=== PATIENT | female | born 1950 | race Caucasian/White ===

== ENCOUNTER 2022-07-25 15:34 | Emergency (ER) | payer OTHER, SELFPAY ==
[2022-07-25 16:06] VITALS: BP 121/73; PULSE 83; RESP 16; TEMP 36.1; O2SAT 97; BMI 25.0
== END 2022-07-25 19:50 | disposition left against medical advice (07) ==
PROVIDERS: PCP Family Medicine
DX: Z53.21 Procedure and treatment not carried out due to patient leaving prior to being seen by health care provider (principal)
CPT/HCPCS: 99281

== ENCOUNTER 2022-08-15 14:04 | Outpatient (CLI) | payer OTHER, SELFPAY ==
[2022-08-15 17:27] LABS: Albumin* 4.2 g/dL (3.3-5.0)
[2022-08-15 17:28] LABS: Chloride* 106 mmol/L (96-114); Potassium* 4.3 mmol/L (3.6-5.1); Sodium* 138 mmol/L (135-149)
[2022-08-15 17:30] LABS: Aspartate Amino Transferase* 21 U/L (12-35); Bilirubin Total* 0.7 mg/dL (0.1-1.5); Carbon Dioxide* 27 mmol/L (20-32); Creatinine* 0.9 mg/dL (0.5-1.5); Estimated Glomerular Filt Rate 68 ml/min; Total Protein* 6.4 g/dL (6.0-8.3)
[2022-08-15 17:31] LABS: Alanine Aminotransferase* 16 U/L (4-35); Alkaline Phosphatase* 67 U/L (40-150); Blood Urea Nitrogen* 9 mg/dL (7-30); Calcium* 10.1 mg/dL (8.4-10.6); Glucose* 99 mg/dL (60-115)
== END 2022-08-15 14:05 | disposition home or self-care (01) ==
PROVIDERS: PCP Family Medicine; Visit Provider Family Medicine
DX: R53.83 Other fatigue (principal); R19.7 Diarrhea, unspecified
CPT/HCPCS: 80053; 84443

== ENCOUNTER 2022-10-11 14:43 | Outpatient (CLI) | payer OTHER, SELFPAY ==
--- NOTE | 2022-10-11 14:40 | CRLHL7_ITS ---
For Patients: As a result of the Century Cures Act, medical imaging exams and procedure reports are released immediately into your electronic medical record. You may view this report before your referring provider. If you have questions, please contact your health care provider. BILATERAL SCREENING MAMMOGRAM WITH COMPUTER-AIDED DETECTION AND TOMOSYNTHESIS TECHNIQUE: CC and MLO views were obtained. These mammographic images have been obtained using full-field digital technique. These mammographic images were interpreted with the benefit of computer-aided detection. Breast Tomosynthesis was used in this interpretation. COMPARISON FILM: 06/14/21, 05/04/20, 11/11/18. FINDINGS: The breasts are heterogeneously dense, which may obscure small masses IMPRESSION: There is no radiographic evidence for malignancy. ASSESSMENT: BI-RADS Category 2: Benign RECOMMENDATION: Routine screening mammogram in 1 year. A lay language report of this examination will be provided to the patient. Kendall Macias M.D. Diagnostic Radiologist [email or web address] NORY/Dictated by: Kendall Macias MD @ 10/12/2022 12:23:00 PM (Electronically Signed)
== END 2022-10-11 14:44 | disposition home or self-care (01) ==
PROVIDERS: PCP Family Medicine; Visit Provider Family Medicine
DX: Z12.31 Encounter for screening mammogram for malignant neoplasm of breast (principal); R92.2 Inconclusive mammogram
CPT/HCPCS: 77063; 77067

== ENCOUNTER 2023-01-14 19:01 | Outpatient (REF) | payer OTHER, SELFPAY ==
--- OUTSIDE RECORDS SUMMARY | 2023-01-14 19:04 | XMS_ITS | Continuity of Care Document ---
Author Name Unknown Organization [facility] Address [address] [facility] [place] [address] Phone Care Team Providers Care Insurance Verifier Name Role Phone Francois JANEY Ary Unavailable Unavailable Allergies, Adverse Reactions, Alerts Substance Reaction Status Criticality Tetracyclines Active No Information Sulfa (Sulfonamide Antibiotics) Active No Information Medications Medication Instructions Dosage Effective Dates (start - stop) Status Comments vitamin E 600 unit capsule take 2 tablet by oral route every day as needed - Active Aspirin Low Dose 81 mg tablet,delayed release take 1 tablet by oral route every day 81 MG - Active Cosopt 22.3 mg-6.8 mg/mL eye drops instill 1 drop by ophthalmic route 2 times every day into affected eye(s) 1.00 drop - Active spironolactone 50 mg tablet take 1 tablet by oral route every day 50 MG - Active Divigel 0.5 mg/0.5 gram (0.1 %) transdermal gel packet apply 1 packet by topical route every day to upper thigh - Active simvastatin 20 mg tablet take 1 tablet by oral route every day in the evening 20 MG - Active FML S.O.P. (unknown strength) apply 0.5 inch by ophthalmic route 2 times every day ribbon into the lower conjunctival sac(s) in the affected eye(s) Not Available - Active Byron 128 5 % eye drops - Active Byron 128 5 % eye ointment - Active brimonidine 0.2 % eye drops instill 1 drop by ophthalmic route every 8 hours into affected eye(s) 1.00 drop - Active latanoprost 0.005 % eye drops instill 1 drop by ophthalmic route every day into affected eye(s) in the evening 1.00 drop - Active Cymbalta 60 mg capsule,delayed release take 2 capsule by ORAL route every day 120 MG - No Longer Active Procedures Procedure Date OFFICE/OUTPATIENT VISIT, EST OFFICE/OUTPATIENT VISIT, EST OFFICE VISIT, EST TELEMEDICINE OFFICE/OUTPATIENT VISIT, EST OFFICE VISIT, EST TELEMEDICINE OFFICE/OUTPATIENT VISIT, EST OFFICE/OUTPATIENT VISIT, EST OFFICE VISIT, EST TELEMEDICINE No Charge For Visit Per Prov OFFICE/OUTPATIENT VISIT, EST OFFICE/OUTPATIENT VISIT, EST INJ TRIGGER POINT, 1/2 MUSCL Kenalog Triamcinolone acetonide inj Foll-up eval q3mo opiod tx OFFICE/OUTPATIENT VISIT, EST DAST 15-30 MIN OFFICE/OUTPATIENT VISIT, NEW Advance Directives Directive Yes / No Effective Date File Name No Information Encounters Encounter Description Practice Location Reason(s) For Visit Diagnoses Date Provider Providers Copied on Encounter [facility], [address] [place], [place], [id number] , [place] tel: [phone] [facility] [place] No Information 2 Francois Mcallister. [address] [facility] [address], [place], [id number] , [place]. tel:[phone] OFFICE/OUTPAT IENT VISIT, EST [facility], [address], [place], [id number] , [place] tel:[phone] [facility] [place] Fibromyalgia (chief complaint) Chronic pain syndromePain in left shoulderPain in right kneePain in left kneeMyalgia, other siteFibromyalgi a 2 Francois Mcallister. [address] [facility] [address], [place], [id number] , [place]. tel:[phone] Referring Provider: Rick Auguste, [address] [place], [address] . tel:[phone] OFFICE/OUTPAT IENT VISIT, [facility], [address] [place] [address] [place], [id number] , [place] tel: [phone] [facility] Fibromyalgia (chief complaint) Chronic pain syndromePain in left shoulderMyalgia , other siteFibromyalgi aPain in left kneePain in right knee January-0 2 Nyongesa Ary. [address] [facility] [address], [place], [id number] , [place]. tel: [phone] Referring Provider: Rick Auguste, [place], [address] . tel:[phone] OFFICE VISIT, [facility], [address] [place] [address] [place], [place], [id number] , [place] tel: [phone] [facility] Fibromyalgia (chief complaint) Chronic pain syndromeFibromy algiaMyalgia, other sitePain in left shoulder Aug- 1 Nyongesa Ary. [address] [facility] [address], [place], [id number] , [place]. tel: [phone] Referring Provider: Rick Auguste, [address] [facility] [place], [address] . tel:[phone] OFFICE/OUTPAT IENT VISIT, [facility], [address] [place] [address] [place], [id number] , [place] tel: [phone] [facility] Fibromyalgia (chief complaint) Chronic pain syndromeFibromy algiaMyalgia, other sitePain in left shoulder Larry-0 1 Nyongesa Ary. [address] [facility] [address], [place], [id number] , [place]. tel: [phone] Referring Provider: Rick Auguste, [place], [address] . tel:[phone] OFFICE VISIT, [facility], [address] [place], [id number] , [place] tel: [phone] [facility] [place] Fibromyalgia (chief complaint) Chronic pain syndromeFibromy algiaMyalgia, other sitePain in left shoulder 1 Nyongesa Ary. [address] [facility] [address], [place], [id number] , [place]. tel: [phone] Referring Provider: Rick Auguste, [address] [place], [address] . tel:[phone] OFFICE/OUTPAT IENT VISIT, [facility], [address] [place], [place] [address], [id number] , [place] tel: [phone] [facility] Fibromyalgia (chief complaint) Chronic pain syndromeFibromy algiaMyalgia, other sitePain in left shoulder 1 Nyongesa Ary. [address] [facility] [address], [place], [id number] , [place]. tel: [phone] Referring Provider: Rick Auguste, [place], [address] . tel:[phone] OFFICE/OUTPAT IENT VISIT, [facility], [address] [place], [place] [address], [id number] , [place] tel: [phone] [facility] Fibromyalgia (chief complaint) Chronic pain syndromeFibromy algiaMyalgia, other sitePain in left shoulder 0 Nyongesa Ary. [address] [facility] [address], [place], [id number] , [place]. tel: [phone] Referring Provider: Rick Auguste, [place], [address] . tel:[phone] OFFICE VISIT, [facility], [address] [place] [place], [id number] , [place] tel:[phone] [facility] [place] Fibromyalgia (chief complaint) Chronic pain syndromeFibromy algiaMyalgia, other sitePain in left shoulder Jul-0 5- 0 Will Rick. [address] [place], [id number] , [place]. tel: [phone] Referring Provider: Rick Auguste, [place], [address] . tel:[phone] [facility], [address] [place], [place] [address], [id number] , [place] tel: [phone] [facility] [place] No Information Jul-0 5 0 Nyongesa Ary. [address] [facility] [address], [place], [id number] , [place]. tel: [phone] Referring Provider: Rick Auguste, [place], [address] . tel:[phone] OFFICE/OUTPAT IENT VISIT, [facility], [address] [place], [id number] , [place] tel: [phone] [facility] Fibromyalgia (chief complaint) Chronic pain syndromeFibromy algiaMyalgia, other sitePain in left shoulder Oct-0 8-202 0 Nyongesa Ary. [address] [facility] [address], [place], [id number] , [place]. tel: [phone] Referring Provider: Rick Auguste, [address] [facility] [place], [address] . tel:[phone] OFFICE/OUTPAT IENT VISIT, [facility], [address] [place] [address] [place], [id number] , [place] tel: [phone] [facility] [place] Fibromyalgia (chief complaint) Chronic pain syndromeFibromy algiaMyalgia, other sitePain in left shoulderLong term (current) use of opiate analgesic Sep-0 2-202 0 Nyongesa Ary. [address] [facility] [address], [place], [id number] , [place]. tel:[phone] Referring Provider: Rick Auguste, [address] [place], [address] . tel:[phone] OFFICE/OUTPAT IENT VISIT, [facility], [address] [facility] [place], [id number] , [place] tel:[phone] [facility] Fibromyalgia (chief complaint) Chronic pain syndromeFibromy algiaMyalgia, other sitePain in left shoulder 0 Virginia Martínez. [address] [facility] [address], [place], [id number] , [place]. tel:[phone] Referring Provider: Rick Auguste, [address] [place], [address] . tel:[phone] OFFICE/OUTPAT IENT VISIT, [facility], [address] [place] [address] [address], [place], [id number] , [place] tel:[phone] [facility] Fibromyalgia (chief complaint) Chronic pain syndromeFibromy algiaEncounter for therapeutic drug level monitoringMyalg ia, other site 0 Francois Mcallister. [address] [facility] [address], [place], [id number] , [place]. tel:[phone] Referring Provider: Rick Auguste, [address] [place], [address] . tel:[phone] Family History Family Member Type Diagnosis Age At Onset No Information Payers Payer name Insurance type Covered alliance party ID Authorleonaa eryndarien(s) [employer] Medicare PPO Replacement [id number] Social History Type Description Quantity Date Captured Comments Sex Female Smoking Status No Information Chief Complaint And Reason For Visit No Information Reason For Referral Reason For Referral No Information Plan Of Treatment Date Type Action Status Goal OARS. Due on due Goal PROOFER BLACK AND WHITE Paperwork. Due on due Goal AST (SGOT). Due on due Goal Creatinine. Due on due Goal ALT (SGPT). Due on due Goal BUSINESS MANAGEMENT INTERN Scanned. Due on due Goal UDT. Due on due Goal Order Annual PT. Due on due Goal Update Social Hi story. Due on due Goal Unhealthy drug u se screening. Due on due Goal Review Allergy L ist. Due on due Goal Tobacco Use. Due on due Goal FIT-DNA. Due on due Goal Height. Due on d ue Goal Lipid panel. Due on due Goal CT-Colonography. Due on due Goal PHQ-9. Due on du e Goal Hepatitis C scre ening. Due on due Goal FIT. Due on due Goal Zoster vaccine ( 1st). Due on due Goal Weight. Due on d ue Goal Medication Recon ciliation. Due on due Goal Order Annual PT. Due on due Goal ALT (SGPT). Due on due Goal Creatinine. Due on due Goal BUSINESS MANAGEMENT INTERN Scanned. Due on due Goal AST (SGOT). Due on due Goal OARS. Due on due Goal UDT. Due on due Goal PROOFER BLACK AND WHITE Paperwork. Due on due Goal Weight. Due on d ue Goal Height. Due on d ue Goal FIT. Due on due Goal Medication Recon ciliation. Due on due Goal Review Allergy L ist. Due on due Goal Unhealthy drug u se screening. Due on due Goal FIT-DNA. Due on due Goal Zoster vaccine ( 1st). Due on due Goal CT-Colonography. Due on due Goal PHQ-9. Due on du e Goal Tobacco Use. Due on due Goal Update Social Hi story. Due on due Goal Hepatitis C scre ening. Due on due Goal Lipid panel. Due on due Goal Creatinine. Due on due Goal UDT. Due on due Goal OARS. Due on due Goal PROOFER BLACK AND WHITE Paperwork. Due on due Goal BUSINESS MANAGEMENT INTERN Scanned. Due on due Goal AST (SGOT). Due on due Goal ALT (SGPT). Due on due Goal Order Annual PT. Due on due Goal Height. Due on d ue Goal Medication Recon ciliation. Due on due Goal Tobacco Use. Due on due Goal Review Allergy L ist. Due on due Goal PHQ-9. Due on du e Goal Weight. Due on d ue Goal Update Social Hi story. Due on due Goal Creatinine. Due on due Goal UDT. Due on due Goal OARS. Due on due Goal PROOFER BLACK AND WHITE Paperwork. Due on due Goal BUSINESS MANAGEMENT INTERN Scanned. Due on due Goal AST (SGOT). Due on due Goal ALT (SGPT). Due on due Goal Order Annual PT. Due on due Goal Height. Due on d ue Goal Medication Recon ciliation. Due on due Goal Tobacco Use. Due on due Goal Review Allergy L ist. Due on due Goal PHQ-9. Due on du e Goal Weight. Due on d ue Goal Update Social Hi story. Due on due Goal Height. Due on d ue Goal Medication Recon ciliation. Due on due Goal Tobacco Use. Due on due Goal Review Allergy L ist. Due on due Goal PHQ-9. Due on du e Goal Weight. Due on d ue Goal Update Social Hi story. Due on due Goal Creatinine. Due on due Goal UDT. Due on due Goal OARS. Due on due Goal PROOFER BLACK AND WHITE Paperwork. Due on due Goal BUSINESS MANAGEMENT INTERN Scanned. Due on due Goal AST (SGOT). Due on due Goal ALT (SGPT). Due on due Goal Order Annual PT. Due on due Future Order: Radiology Order X- Ray Exam Of Knee Left (XKNEEL), Ordered on: Ordered Future Order: Radiology Order X- Ray Exam Of Knee Right (XKNEER), Body Site: Bilateral Knees , Ordered on: Ordered History Of Present Illness Encounter Date Complaint History Of Prese nt Illness Comments: Beena santa s a 71 y/o female who presents for follow up and medications refill in the setting of chronic fibromyalgia pain. She was last seen on 01/31/22. She is accompanied by her today who also contributes to her discussion of care. Pain has been fluctuating this month. Reports pain in the L calf which can lock up at times and extreme pain in the L hand. Patient states she will discontinue care with [facility] and continue care with [facility]. Notes she does not have any hard feelings against [facility] as the main reason why she wants to switch care is d/t being pt at [facility] Reports current medication regimen provides moderate pain relief and allows for increased functionality. Denies OIC or other side effects from current medication regimen. No other concerns today Fibromyalgia Severity level i s 4. Duration: chronic. Location of the pain is left hand and left calf. The client describes it as sharp, achy, burning and tingling. It occurs persistently. The problem is fluctuating. Symptom is aggravated by bending, walking upstairs, walking downstairs, running, sitting, standing, walking, prolonged positioning, housework and movement. Relieving factors include rest and Rx Meds. Pertinent negatives include diarrhea, fatigue, fever and incontinence (urinary). Comments: Beena santa s a 71 y/o female, here for follow up and medications refill in the setting of chronic fibromyalgia pain. She was last seen 08/2021.She reports the area below her R knee can sometimes lock up. She notes when she rides on her bike sometimes she falls and experiences dizziness. She notes that she feels tired all the time and can sleep 10-12hrs at a time. She reports she has not completed a Vitamin D, iron levels or thyroid labs in a while. Denies SOB. She details she does not feel like her lethargy is medication related as she has been on Cymbalta for over 1 year. She also reports L hand pain.She again notes she has intermittent memory issues; sometimes good, sometimes poor. Reports current medication regimen (Cymbalta 60mg #2 capsules a day) provides moderate pain relief and allows for increased functionality. Denies side effects from current medication regimen.No other concerns today Fibromyalgia Duration: chroni c. The client describes it as sharp and achy. It occurs persistently. The problem is stable. Symptom is aggravated by bending, walking upstairs, walking downstairs, running, sitting, standing, walking, housework, lifting and prolonged positioning. Relieving factors include heat and changing positions. Pertinent negatives include diarrhea, fatigue, fever and incontinence (urinary). Fibromyalgia Severity level i s 4. Duration: chronic. Location of the pain is bilateral shoulder, bilateral knee, BL feet and BL hands. The patient describes it as sharp and achy. It occurs persistently. The problem is worsening. Pertinent negatives include diarrhea, fatigue, fever and incontinence (urinary). Fibromyalgia (comments) Beena is a 71 y/o female, here via [employer] for virtual follow up and medications refill in the setting of chronic fibromyalgia pain. She reports her pain is worse this month as she has been out of her Cymbalta rx. She states her memory issues are intermittent; sometimes good, sometimes poor. Reports current medication regimen (Cymbalta) provides moderate pain relief and allows for increased functionality. Denies side effects from current medication regimen.No other concerns today Fibromyalgia (comments) Beena is here for a follow up and medications refill. Fibromyalgia pain persists this month, but medication does help to some extent. She feels her pain is somewhat well managed at this time. She reports persistent sharp pains in her hands. She reports intermittent water retention her feet, kidney function is normal. She reports some weight gain as her pain has increased, limiting her exercise ability. Her PCP ordered blood work, normal, recommended diet and exercise.She reports mild pressure headache brought on by the hot weather. Reports neck pain radiating into left shoulder, intermittent sharp pain in hands. She has history of carpel tunnel syndrome s/p surgery on both hands. Currently denies weakness or dropping objectsReports current medication regimen (Cymbalta) provides moderate pain relief and allows for increased functionality. Denies side effects from current medication regimen.No other concerns today. Fibromyalgia Duration: chroni c. Location of the pain is upper back, left shoulder, bilateral hand and left arm. The patient describes it as sharp, achy, burning and tingling. It occurs intermittently. The problem is stable. Symptom is aggravated by daily activities. Relieving factors include rest. Pertinent negatives include diarrhea, fatigue, fever and incontinence (urinary). Fibromyalgia (comments) Beena is meeting with us today via [employer] Virtual Visit for following up and medication refill. Widespread fibromyalgia pain persists this month, but medication does help to some extent. She feels he pain is moderately managed at this time. She has been completing daily at home exercises. The most bothersome pain is located across the upper back and into the left shoulder. She has noticed increased weakness/soreness in left arm, hx of rotator cuff issues. She also reports bilateral hand pain as well. Denies dropping any objects. The pain does improve after completing her neck exercises.Reports current medication regimen (Cymbalta) provides moderate pain relief and allows for increased functionality. Denies side effects from current medication regimen.No other concerns today. Fibromyalgia Severity level i s 3. Duration: chronic. Location of the pain is upper back, left shoulder, bilateral hand and left arm. The patient describes it as sharp, achy, burning and tingling. It occurs intermittently. The problem is stable. Symptom is aggravated by daily activities. Relieving factors include rest. Pertinent negatives include diarrhea, fatigue, fever and incontinence (urinary). Fibromyalgia (comments) Beena is here for a follow up and medications refill. Widespread fibromyalgia pain persists this month, but medication does help to some extent. She feels her pain is moderately managed at this time. Reports worse pain in left shoulder. When she rolls a certain way in bed, she experiences severe sharp pain.She is scheduled for her second dose of COVID-19 vaccine on 12/23/20.Reports possible parathyroidism due to high calcium levels and symptom of itching, PCP rx'ed hydroxyzine to take up to 3tab/day. But she was only given 30tab for the month. Requests refill until she is able to f/u.Reports current medication regimen (Cymbalta) provides moderate pain relief and allows for increased functionality. Denies side effects from current medication regimen. Reports no relief from diclofenac gel.No other concerns today. Fibromyalgia Duration: chroni c. Location of the pain is neck and left shoulder. The patient describes it as sharp and achy. It occurs persistently. The problem is stable. Symptom is aggravated by activity. Relieving factors include exercise. Pertinent negatives include diarrhea, fatigue, fever and incontinence (urinary). Fibromyalgia Duration: chroni c. Location of the pain is lower back, left shoulder, bilateral knee and bilateral legs. It occurs persistently. The problem is stable. Pertinent negatives include diarrhea, fatigue, fever and incontinence (urinary). Fibromyalgia (comments) Beena pre sents in clinic today for a follow up and medications refill. Widespread pain r/t fibromyalgia continues to be bothersome this month. BL shoulder blade pain and bilateral traps is most bothersome. Utilizing heat and massage for additional relief. Ongoing skin sensitivity.Received neurological evaluation, specialist determined that she is suffering from some cognitive delay and difficulty. Since she is unable to work and multitask, she is becoming more involved with scientologist.Reports current medication regimen provides 50+% pain relief and allows for increased functionality. Continuing to take Cymbalta 90mg/day with sufficient relief. Denies side effects from current medication regimen.No other concerns today. Fibromyalgia Severity level i s 6. Duration: chronic. Location of the pain is neck and bilateral shoulder. The patient describes it as sharp. It occurs persistently. The problem is stable. Symptom is aggravated by sitting. Relieving factors include ibuprofen. Pertinent negatives include diarrhea, fatigue, fever and incontinence (urinary). Fibromyalgia (comments) Beena is meeting with us today via Phone Visit (1:36PM - 1:47PM) for following up and medication refill. Overall fibromyalgia pain persists this month, tolerable with medication. Reports shoulder pain is radiating into neck and causing cervicogenic headaches. Reports slight intermittent pressure in right side chest as well, onset about 2 weeks ago. Reports increased activity doing housework and may have pulled a muscle in her upper back/neck. She has been completing PT at [facility] with benefit and is considering pool PT/exercises.Reports current medication regimen (Cymbalta) provides moderate pain relief and allows for increased functionality. Denies side effects from current medication regimen.No other concerns today. Fibromyalgia Duration: chroni c. Location of the pain is left shoulder and overall body. The patient describes it as sharp and achy. It occurs persistently. The problem is stable. Symptom is aggravated by movement. Relieving factors include rest and Rx Meds. Pertinent negatives include diarrhea, fatigue, fever and incontinence (urinary). Fibromyalgia (comments) Beena is here for a follow up and medications refill. Fibromyalgia pain persists this month, tolerable with medication. She started PT at [facility] on her left shoulder after having sharp pain.Reports current medication (Cymbalta)regimen provides significant pain relief and allows for increased functionality. Denies side effects from current medication regimen. She inquires about increasing Cymbalta, reports her mind is clearer compared to taking other nerve medication such as nortriptyline.No other concerns today. Fibromyalgia Severity level i s 8. Duration: chronic. Location of the pain is lower back, mid back and upper back. The patient describes it as sharp, achy and burning. It occurs persistently. The problem is fluctuating. Symptom is aggravated by standing, prolonged positioning and lifting. Relieving factors include walking, Rx Meds and changing positions. Pertinent negatives include diarrhea, fatigue, fever and incontinence (urinary). Fibromyalgia (comments) Beena is here for a follow up and medications refill. Fibromyalgia pain persists this month, tolerable with medication. The pain is most intense at night. She is still waiting for the neurology evaluation results by Dr. Ronda la [facility] [facility] Reports no significant relief form last TPI. She is not sure that she will be going back to work and is considering prison.Reports current medication regimen provides 80% pain relief and allows for increased functionality. Denies side effects from current medication regimen. Reports waking up feeling nauseous and not feeling right in the morning when she takes the tramadol. She reports relief in the past with nortriptyline, but her neurologist weaned her off for unknown reason.No other concerns today. Fibromyalgia Duration: chroni c. Location of the pain is R shoulder. The patient describes it as sharp and achy. It occurs persistently. The problem is stable. Symptom is aggravated by housework, lifting and movement. Relieving factors include massage, rest, bath/shower, Rx Meds and changing positions. Pertinent negatives include diarrhea, fatigue, fever and incontinence (urinary). Fibromyalgia (comments) Beena is here for initial follow-up and medication refills. She presents with widespread pain in the setting of Fibromyalgia. Her pain is most bothersome in L shoulder and it radiates up her neck. Inquires about a one time tramadol RX today and then follow-up with her PCP for further pain medication RX. Interested in re-trialling a TPs today.Reports current medication regimen provides at least 50% pain relief. Denies side effects from current medication regimen. No other concerns today.Beena is accompanied by her who contributes to the discussion. Patient and her were not comfortable signing [employer] today. Fibromyalgia Severity level i s 6. Duration: chronic. Location of the pain is lower back, neck, bilateral knee, legs L>R and arms. The patient describes it as achy, burning and pins & needles. It occurs persistently. Symptom is aggravated by walking upstairs, walking downstairs, running, sitting, standing, supine, housework, twisting and lifting. Relieving factors include rest and Rx Meds. Pertinent negatives include diarrhea, dyspnea, fever and incontinence (urinary). Fibromyalgia (comments) Beena is here for an initial consult and presents with widespread fibromyalgia pain, diagnosed in 2000. The pain is worst on neck, low back, knees, and legs L>R. She describes the pain as burning - more so neck and shoulder region. She was previously on citalopram and nortriptyline, reports memory issues, migraines, and cognitive decline to an extent that she was placed on emergency leave at work, she make mistakes which would typically not make.. She consulted a neurologist and recommendations was to stop these medications, she also completed an extensive neuropsychological evaluation. Now the pain has worsened. Her migraines improved after stopping the medications, but now are beginning to return. . She had to pass a neuropsychc evaluation before returning to work, results pending.Currently she is taking Ibuprofen and Tramadol, which helps with the pain and she does not feel like it is affecting her cognitive ability S/P left hip replacement 2019 and right rotator cuff repair 2018.Naga is self referred. Treatment Tried:citalopram, nortriptyline - negative conative side effects and headaches.3 ibuprofen and 1/2 tab tramadol (old rx) HS - helpful.naproxen - helpful.L5 nerve block 2019 at [facility] - not helpful.PT - not helpful.TENS - not helpful.Pt goal: [facility] to take over pain management. Functional Status Date Functional Assessmen t No Information Instructions Date Instruction Additional Infor mation No Information Assessments Type Assessment Date No Information Patient Care Teams Name Effective Dates (start - stop) Status Members No Information
[2023-01-14 20:09] LABS: Free T4 Free Thyroxine* 0.98 ng/dL (0.70-1.85)
[2023-01-14 21:06] LABS: Vitamin B12* 397 pg/mL (243-894)
== END 2023-01-14 19:02 | disposition home or self-care (01) ==
LOC: NPINS 19:01
PROVIDERS: PCP Family Medicine; Visit Provider Psychiatry & Neurology Neurology
DX: F41.9 Anxiety disorder, unspecified (principal); R41.3 Other amnesia
CPT/HCPCS: 82607; 84439; 84443

== ENCOUNTER 2023-01-25 14:43 | Outpatient (CLI) | payer OTHER, SELFPAY ==
--- OUTSIDE RECORDS SUMMARY | 2023-01-26 09:12 | XMS_ITS | Continuity of Care Document ---
Author Name Unknown Organization [facility] Address [address] [place] [address] Phone Care Team Providers Care Senior Data Developer Name Role Phone Francois JANEY Ary Unavailable [...] Diagnoses Date Provider Providers Copied on Encounter [facility], [address], [place], [id number] , [place] tel: [phone] [facility] [employer] No Information 2 Francois Mcallister. [address] [facility] [address], [place], [id number] , [place]. tel:[phone] OFFICE/OUTPAT IENT VISIT, EST [facility], [address], [place], [id number] , [place] tel:[phone] [facility] [employer] Fibromyalgia (chief complaint) Chronic pain syndromePain in left shoulderPain in right kneePain in left kneeMyalgia, other siteFibromyalgi a 2 Francois Mcallister. [address] [facility] [address], [place], [id number] , [place]. tel:[phone] Referring Provider: Rick Auguste, [address] [place], [address] . tel:[phone] OFFICE/OUTPAT IENT VISIT, [facility], [address] [place] [address] Andrés [place], [id number] , [place] tel: [phone] [facility] Fibromyalgia (chief complaint) Chronic pain syndromePain in left shoulderMyalgia , other siteFibromyalgi aPain in left kneePain in right knee January-0 2 Nyongesa Ary. [address], [place], [id number] , [place]. tel: [phone] Referring Provider: Rick Auguste, [place], [address] . tel:[phone] OFFICE VISIT, [facility], [address] [place] [address] Andrés [place], [place], [id number] , [place] tel: [phone] [facility] Fibromyalgia (chief complaint) Chronic pain syndromeFibromy algiaMyalgia, other sitePain in left shoulder Aug- 1 Nyongesa Ary. [address] [facility], [place], [id number] , [place]. tel: [phone] Referring Provider: Rick Auguste, [address] [facility] [place], [address] . tel:[phone] OFFICE/OUTPAT IENT VISIT, [facility], [address] [place] [address] [place], [place], [id number] , [place] tel: [phone] [facility] Fibromyalgia (chief complaint) Chronic pain syndromeFibromy algiaMyalgia, other sitePain in left shoulder Larry-0 1 Nyongesa Ary. [address], [place], [id number] , [place]. tel: [phone] Referring Provider: Rick Auguste, [place], [address] . tel:[phone] OFFICE VISIT, [facility], [address] [place], [id number] , [place] tel: [phone] [facility] [employer] Fibromyalgia (chief complaint) Chronic pain syndromeFibromy algiaMyalgia, other sitePain in left shoulder 1 Nyongesa Ary. [address], [place], [id number] , [place]. tel: [phone] Referring Provider: Rick Auguste, [address] [place], [address] . tel:[phone] OFFICE/OUTPAT IENT VISIT, [facility], [address] [place], [place] [address]C[place], [id number] , [place] tel: [phone] [facility] Fibromyalgia (chief complaint) Chronic pain syndromeFibromy algiaMyalgia, other sitePain in left shoulder 1 Nyongesa Ary. [address], [place], [id number] , [place]. tel: [phone] Referring Provider: Rick Auguste, [place], [address] . tel:[phone] OFFICE/OUTPAT IENT VISIT, [facility], [address] [place], [place] [address], [id number] , [place] tel: [phone] [facility] Fibromyalgia (chief complaint) Chronic pain syndromeFibromy algiaMyalgia, other sitePain in left shoulder 0 Nyongesa Ary. [address], [place], [id number] , [place]. tel: [phone] Referring Provider: Rick Auguste, [place], [address] . tel:[phone] OFFICE VISIT, [facility], [address] [place], [id number] , [place] tel:[phone] [facility] [employer] Fibromyalgia (chief complaint) Chronic pain syndromeFibromy algiaMyalgia, other sitePain in left shoulder Jul-0 5- 0 Will Rick. [address] [place], [id number] , [place]. tel: [phone] Referring Provider: Rick Auguste, [place], [address] . tel:[phone] [facility], [address] [place], [place] [address]C[place], [id number] , [place] tel: [phone] [facility] [place] No Information Jul-0 5 0 Nyongesa Ary. [address], [place], [id number] , [place]. tel: [phone] Referring Provider: Rick Auguste, [place], [address] . tel:[phone] OFFICE/OUTPAT IENT VISIT, [facility], [address] [place], [id number] , [place] tel: [phone] [facility] Fibromyalgia (chief complaint) Chronic pain syndromeFibromy algiaMyalgia, other sitePain in left shoulder Oct-0 8-202 0 Nyongesa Ary. [address], [place], [id number] , [place]. tel: [phone] Referring Provider: Rick Auguste, [address] [facility] [place], [address] . tel:[phone] OFFICE/OUTPAT IENT VISIT, [facility], [address] [place] [address] Andrés [place], [id number] , [place] tel: [phone] [facility] [employer] Fibromyalgia (chief complaint) Chronic pain syndromeFibromy algiaMyalgia, other sitePain in left shoulderLong term (current) use of opiate analgesic Sep-0 2-202 0 Nyongesa Ary. [address] [facility] [address], [place], [id number] , [place]. tel:[phone] Referring Provider: Rick Auguste, [address] [place], [address] . tel:[phone] OFFICE/OUTPAT IENT VISIT, [facility], [address] [facility] [facility] [address] [place], [id number] , [place] tel:[phone] [facility] Fibromyalgia (chief complaint) Chronic pain syndromeFibromy algiaMyalgia, other sitePain in left shoulder 0 Virginia Martínez. [address], [place], [id number] , [place]. tel:[phone] Referring Provider: Rick Auguste, [address] [place], [address] . tel:[phone] OFFICE/OUTPAT IENT VISIT, [facility], [address] [place] [address] Andrés [place], [place], [id number] , [place] tel:[phone] [facility] Fibromyalgia (chief complaint) Chronic pain syndromeFibromy algiaEncounter for therapeutic drug level monitoringMyalg ia, other site 0 Francois Mcallister. [address] [facility] [address], [place], [id number] , [place]. tel:[phone] Referring Provider: Rick Auguste, [address] [place], [address] . tel:[phone] Family History Family Member Type Diagnosis Age At Onset No Information Payers Payer name Insurance type Covered alliance party ID Authorleonaa eryndarien(s) [employer] Medicare PPO Replacement 16 [id number] Social History Type Description Quantity Date Captured Comments Sex Female Smoking Status No Information Chief Complaint And Reason For Visit No Information Reason For Referral Reason For Referral No Information Plan Of Treatment Date Type Action Status Goal OARS. Due on due Goal AD CLERK Paperwork. Due on due Goal AST (SGOT). Due on due Goal Creatinine. Due on due Goal ALT (SGPT). Due on due Goal CHILD WELFARE CASEWORKER Scanned. Due on due Goal UDT. Due [...] due Goal Creatinine. Due on due Goal CHILD WELFARE CASEWORKER Scanned. Due on due Goal AST (SGOT). Due on due Goal OARS. Due on due Goal UDT. Due on due Goal AD CLERK Paperwork. Due on due Goal Weight. Due [...] due Goal OARS. Due on due Goal AD CLERK Paperwork. Due on due Goal CHILD WELFARE CASEWORKER Scanned. Due on due Goal AST (SGOT). [...] due Goal OARS. Due on due Goal AD CLERK Paperwork. Due on due Goal CHILD WELFARE CASEWORKER Scanned. Due on due Goal AST (SGOT). [...] due Goal OARS. Due on due Goal AD CLERK Paperwork. Due on due Goal CHILD WELFARE CASEWORKER Scanned. Due on due Goal AST (SGOT). [...] care with [facility] and continue care with [facility]. Notes she does not have any hard feelings against [facility] as the main reason why she wants to switch care is d/t being pt at [facility] Reports current medication regimen provides [...] is a 71 y/o female, here via [employer] for virtual follow up and medications refill [...] other concerns today Fibromyalgia Duration: chroni c. Location of the [...] current medication regimen.No other concerns today. Fibromyalgia (comments) Beena is meeting with us today via [employer] Virtual Visit for following up and medication [...] multitask, she is becoming more involved with congregational.Reports current medication regimen provides 50+% pain relief [...] been completing PT [facility] with benefit and is considering pool PT/exercises.Reports current medication regimen (Cymbalta) provides moderate pain relief and allows for increased functionality. Denies side effects from current medication regimen.No other concerns today. Fibromyalgia (comments) Beena is here for a follow up and medications refill. Fibromyalgia pain persists this month, tolerable with medication. She started PT at [facility] on her left shoulder after having sharp pain.Reports current medication (Cymbalta)regimen provides significant pain relief and allows for increased functionality. Denies side effects from current medication regimen. She inquires about increasing Cymbalta, reports her mind is clearer compared to taking other nerve medication such as nortriptyline.No other concerns today. Fibromyalgia Duration: chroni c. Location of the pain is left shoulder and overall body. The patient describes it as sharp and achy. It occurs persistently. The problem is stable. Symptom is aggravated by movement. Relieving factors include rest and Rx Meds. Pertinent negatives include diarrhea, fatigue, fever and incontinence (urinary). Fibromyalgia Severity level i s 8. Duration: [...] neurology evaluation results by Dr. Ronda la [facility] from November. Reports no significant relief form last TPI. She is not sure that she will be going back to work and is considering custodial.Reports current medication regimen provides 80% pain relief [...] Patient and her were not comfortable signing AD CLERK today. Fibromyalgia Severity level i s 6. [...] helpful.naproxen - helpful.L5 nerve block 2019 at [facility] - not helpful.PT - not helpful.TENS - not helpful.Pt goal: [facility] to take over pain management. Functional Status Date Functional Assessmen t No Information Instructions Date Instruction Additional Infor mation No Information Assessments Type Assessment Date No Information Patient Care Teams Name Effective Dates (start - stop) Status Members No Information
== END 2023-01-25 14:44 | disposition home or self-care (01) ==
LOC: NFLDREF 01-26 09:08
PROVIDERS: PCP Family Medicine; Referring Provider Family Medicine; Visit Provider Family Medicine
DX: R73.03 Prediabetes (principal); Z13.6 Encounter for screening for cardiovascular disorders
CPT/HCPCS: 80053; 80061

== ENCOUNTER 2023-03-19 20:23 | Outpatient (REF) | payer OTHER, SELFPAY ==
--- OUTSIDE RECORDS SUMMARY | 2023-03-19 20:26 | XMS_ITS | Continuity of Care Document ---
Author Name Unknown Organization [facility] mam[facility]ou Address [address] [facility] [place] [address] Phone Care Team Providers Care Ceo And President Name Role Phone Francois JANEY Ary Unavailable [...] Date Provider Providers Copied on Encounter [facility], [address], [place], [id number] , [place] tel: [phone] [facility] [place] No Information 2 Francois Mcallister. [address] [facility] [address], [place], [id number] , [place]. tel:[phone] OFFICE/OUTPAT IENT VISIT, EST [facility], [address], [place], [id number] , [place] tel:[phone] [facility] [place] Fibromyalgia (chief complaint) Chronic pain syndromePain in left shoulderPain in right kneePain in left kneeMyalgia, other siteFibromyalgi a 2 Francois Mcallister. [address] [facility] [address], [place], [id number] , [place]. tel:[phone] Referring Provider: Rick Auguste, [address] [place], [address] . tel:[phone] OFFICE/OUTPAT IENT VISIT, [facility], [address] [place] [address] Andrés [place], [id number] , [place] tel: [phone] [facility] Fibromyalgia (chief complaint) Chronic pain syndromePain in left shoulderMyalgia , other siteFibromyalgi aPain in left kneePain in right knee January-0 2 Nyongesa Ary. [address] [facility] [address], [place], [id number] , [place]. tel: [phone] Referring Provider: Rick Auguste, [place], [address] . tel:[phone] OFFICE VISIT, [facility], [address] [place] [address] Andrés [place], [place], [id number] , [place] tel: [phone] [facility] Fibromyalgia (chief complaint) Chronic pain syndromeFibromy algiaMyalgia, other sitePain in left shoulder Aug- 1 Nyongesa Ary. [address] [facility] [address], [place], [id number] , [place]. tel: [phone] Referring Provider: Rick Auguste, [address] [facility] [place], [address] . tel:[phone] OFFICE/OUTPAT IENT VISIT, [facility], [address] [place] [address] [place], [id number] , [place] tel: [phone] [facility] Fibromyalgia (chief complaint) Chronic pain syndromeFibromy algiaMyalgia, other sitePain in left shoulder Larry-0 1 Nyongesa Ary. [address] [facility] [address], [place], [id number] , [place]. tel: [phone] Referring Provider: Rick Auguste, [place], [address] . tel:[phone] OFFICE VISIT, [facility], [address] [place], [id number] , [place] tel: [phone] [facility] [place] Fibromyalgia (chief complaint) Chronic pain syndromeFibromy algiaMyalgia, other sitePain in left shoulder 1 Nyongesa Ary. [address] [facility] [address], [place], [id number] , [place]. tel: [phone] Referring Provider: Rick Auguste, [address] [place], [address] . tel:[phone] OFFICE/OUTPAT IENT VISIT, [facility], [address] [place], [place] [address]C[place], [id number] , [place] tel: [phone] [facility] Fibromyalgia (chief complaint) Chronic pain syndromeFibromy algiaMyalgia, other sitePain in left shoulder 1 Nyongesa Ary. [address] [facility] [address], [place], [id number] , [place]. tel: [phone] Referring Provider: Rick Auguste, [place], [address] . tel:[phone] OFFICE/OUTPAT IENT VISIT, [facility], [address] [place], [place] [address]C[place], [id number] , [place] tel: [phone] [facility] Fibromyalgia (chief complaint) Chronic pain syndromeFibromy algiaMyalgia, other sitePain in left shoulder 0 Nyongesa Ary. [address] [facility] [address], [place], [id number] , [place]. tel: [phone] Referring Provider: Rick Auguste, [place], [address] . tel:[phone] OFFICE VISIT, [facility], [address] [place], [id number] , [place] tel:[phone] [facility] [place] Fibromyalgia (chief complaint) Chronic pain syndromeFibromy algiaMyalgia, other sitePain in left shoulder Jul-0 5- 0 Will Rick. [address] [place], [id number] , [place]. tel: [phone] Referring Provider: Rick Auguste, [place], [address] . tel:[phone] [facility], [address] [place], [place] [address]C[place], [id number] , [place] tel: [phone] [facility] [place] No Information Jul-0 5 0 Nyongesa Ary. [address] [facility] [address], [place], [id number] , [place]. tel: [phone] Referring Provider: Rick Auguste, [place], [address] . tel:[phone] OFFICE/OUTPAT IENT VISIT, [facility], [address] [place], [id number] , [place] tel: [phone] [facility] Fibromyalgia (chief complaint) Chronic pain syndromeFibromy algiaMyalgia, other sitePain in left shoulder Oct-0 8-202 0 Nyongesa Ary. [address] [facility] [address], [place], [id number] , [place]. tel: [phone] Referring Provider: Rick Auguste, [address] [facility] [place], [address] . tel:[phone] OFFICE/OUTPAT IENT VISIT, [facility], [address] [place] [address] Andrés [place], [id number] , [place] tel: [phone] [facility] [place] Fibromyalgia (chief complaint) Chronic pain syndromeFibromy algiaMyalgia, other sitePain in left shoulderLong term (current) use of opiate analgesic Sep-0 2-202 0 Nyongesa Ary. [address] [facility] [address], [place], [id number] , [place]. tel:[phone] Referring Provider: Rick Auguste, [address] [place], [address] . tel:[phone] OFFICE/OUTPAT IENT VISIT, [facility], [address] [facility] [place], [id number] , [place] tel:[phone] [facility] Fibromyalgia (chief complaint) Chronic pain syndromeFibromy algiaMyalgia, other sitePain in left shoulder 0 Virginia Martínez. [address] [facility] [address], [place], [id number] , [place]. tel:[phone] Referring Provider: Rick Auguste, [address] [place], [address] . tel:[phone] OFFICE/OUTPAT IENT VISIT, [facility], [address] [place] [address] [address]rés [place], [place], [id number] , [place] tel:[phone] [facility] Fibromyalgia (chief complaint) Chronic pain syndromeFibromy algiaEncounter for therapeutic drug level monitoringMyalg ia, other site 0 Francois Mcallister. [address] [facility] [address], [place], [id number] , [place]. tel:[phone] Referring Provider: Rick Auguste, [address] [place], [address] . tel:[phone] Family History Family Member Type Diagnosis Age At Onset No Information Payers Payer name Insurance type Covered libertarian ID Authorleonaa eryndarien(s) [employer] Medicare PPO Replacement 16 [id number] Social History Type Description Quantity Date Captured Comments Sex Female Smoking Status No Information Chief Complaint And Reason For Visit No Information Reason For Referral Reason For Referral No Information Plan Of Treatment Date Type Action Status Goal OARS. Due on due Goal ANALYSIS SPECIALIST Paperwork. Due on due Goal AST (SGOT). Due on due Goal Creatinine. Due on due Goal ALT (SGPT). Due on due Goal REAL ESTATE JOB TITLES Scanned. Due on due Goal UDT. Due [...] due Goal Creatinine. Due on due Goal REAL ESTATE JOB TITLES Scanned. Due on due Goal AST (SGOT). Due on due Goal OARS. Due on due Goal UDT. Due on due Goal ANALYSIS SPECIALIST Paperwork. Due on due Goal Weight. Due [...] due Goal OARS. Due on due Goal ANALYSIS SPECIALIST Paperwork. Due on due Goal REAL ESTATE JOB TITLES Scanned. Due on due Goal AST (SGOT). [...] due Goal OARS. Due on due Goal ANALYSIS SPECIALIST Paperwork. Due on due Goal REAL ESTATE JOB TITLES Scanned. Due on due Goal AST (SGOT). [...] due Goal OARS. Due on due Goal ANALYSIS SPECIALIST Paperwork. Due on due Goal REAL ESTATE JOB TITLES Scanned. Due on due Goal AST (SGOT). [...] care with [facility] and continue care with [facility]. Notes she does not have any hard feelings against [facility] as the main reason why she wants to switch care is d/t being pt at [facility] Reports current medication regimen provides [...] is a 71 y/o female, here via [employer] for virtual follow up and medications refill [...] Beena is meeting with us today via [employer] Virtual Visit for following up and medication [...] multitask, she is becoming more involved with buddhist.Reports current medication regimen provides 50+% pain relief [...] been completing PT [facility] [place] with benefit and is considering pool PT/exercises.Reports current medication regimen (Cymbalta) provides moderate pain relief and allows for increased functionality. Denies side effects from current medication regimen.No other concerns today. Fibromyalgia (comments) Beena is here for a follow up and medications refill. Fibromyalgia pain persists this month, tolerable with medication. She started PT at [facility] on her left shoulder after [...] neurology evaluation results by [facility] Ronda la [facility] from November. Reports no significant relief form last TPI. She is not sure that she will be going back to work and is considering skilled nursing.Reports current medication regimen provides 80% pain relief [...] Patient and her were not comfortable signing ANALYSIS SPECIALIST today. Fibromyalgia Severity level i s 6. [...] helpful.naproxen - helpful.L5 nerve block 2019 at [facility] - not helpful.PT - not helpful.TENS - not helpful.Pt goal: [facility] to take over pain management. Functional Status Date Functional Assessmen t No Information Instructions Date Instruction Additional Infor mation No Information Assessments Type Assessment Date No Information Patient Care Teams Name Effective Dates (start - stop) Status Members No Information
--- OUTSIDE RECORDS SUMMARY | 2023-03-20 17:09 | XMS_ITS | Continuity of Care Document ---
Author Name Unknown Organization [facility] Address [address] [facility] [place] [address] Phone Care Team Providers Care Ratings Analyst Name Role Phone Francois Velvet TOTHcy Unavailable Unavailable Allergies, Adverse Reactions, Alerts Substance [...] route every day 81 MG - Active spironolactone 50 mg tablet take 1 tablet by oral route every day 50 MG - Active Cosopt 22.3 mg-6.8 mg/mL eye drops instill 1 drop by ophthalmic route 2 times every day into affected eye(s) 1.00 drop - Active Divigel 0.5 mg/0.5 gram (0.1 %) transdermal gel packet apply 1 packet by topical route every day to upper thigh - Active simvastatin 20 mg tablet take 1 tablet by oral route every day in the evening 20 MG - Active latanoprost 0.005 % eye drops instill 1 drop by ophthalmic route every day into affected eye(s) in the evening 1.00 drop - Active brimonidine 0.2 % eye drops instill 1 drop by ophthalmic route every 8 hours into affected eye(s) 1.00 drop - Active Byron 128 5 % eye ointment - Active Byron 128 5 % eye drops - Active FML S.O.P. (unknown strength) apply 0.5 inch by ophthalmic route 2 times every day ribbon into the lower conjunctival sac(s) in the affected eye(s) Not Available - Active Cymbalta 60 mg capsule,delayed release [...] Diagnoses Date Provider Providers Copied on Encounter [facility], [address] [place], [place], [id number] , [place] tel: [phone] [facility] [place] No Information 2 Francois Mcallister. [address] [facility] [address], [place], [id number] , [place]. tel:[phone] OFFICE/OUTPAT IENT VISIT, EST [facility], [address] [place], [place], [id number] , [place] tel:[phone] [facility] [place] Fibromyalgia (chief complaint) Chronic pain syndromePain in left shoulderPain in right kneePain in left kneeMyalgia, other siteFibromyalgi a 2 Francois Mcallister. [address] [facility] [address], [place], [id number] , [place]. tel:[phone] Referring Provider: Rick Auguste, [address], [address] . tel:[phone] OFFICE/OUTPAT IENT VISIT, [facility], [address] [place] [address] Andrés [place], [id number] , [place] tel: [phone] [facility] Fibromyalgia (chief complaint) Chronic pain syndromePain in left shoulderMyalgia , other siteFibromyalgi aPain in left kneePain in right knee January-0 2 Nyongesa Ary. [address] [facility] [address], [place], [id number] , [place]. tel: [phone] Referring Provider: Rick Auguste, [place], [address] . tel:[phone] OFFICE VISIT, [facility], [address] [place] [address] Andrés [place], [place], [id number] , [place] tel: [phone] [facility] Fibromyalgia (chief complaint) Chronic pain syndromeFibromy algiaMyalgia, other sitePain in left shoulder Aug- 1 Nyongesa Ary. [address] [facility] [address], [place], [id number] , [place]. tel: [phone] Referring Provider: Rick Auguste, Zeinab [facility] [place], [address] . tel:[phone] OFFICE/OUTPAT IENT VISIT, [facility], [address] [place] [address] [place], [id number] , [place] tel: [phone] [facility] Fibromyalgia (chief complaint) Chronic pain syndromeFibromy algiaMyalgia, other sitePain in left shoulder Larry-0 1 Nyongesa Ary. [address] [facility] [facility] [address], [place], [id number] , [place]. tel: [phone] Referring Provider: Rick Auguste, [place], [address] . tel:[phone] OFFICE VISIT, [facility], [facility] [place], [id number] , [place] tel: [phone] [facility] [place] Fibromyalgia (chief complaint) Chronic pain syndromeFibromy algiaMyalgia, other sitePain in left shoulder 1 Nyongesa Ary. [address], [place], [id number] , [place]. tel: [phone] Referring Provider: Rick Auguste, [address] [place], [address] . tel:[phone] OFFICE/OUTPAT IENT VISIT, [facility], [address] [place], [place] [address]Cayr [place], [id number] , [place] tel: [phone] [facility] Fibromyalgia (chief complaint) Chronic pain syndromeFibromy algiaMyalgia, other sitePain in left shoulder 1 Nyongesa Ary. [address], Dewayne carlie [place], [id number] , [place]. tel: [phone] Referring Provider: Rick Auguste, [place], [address] . tel:[phone] OFFICE/OUTPAT IENT VISIT, [facility], [address] [place], [place] [address]Cary [place], [id number] , [place] tel: [phone] [facility] Fibromyalgia (chief complaint) Chronic pain syndromeFibromy algiaMyalgia, other sitePain in left shoulder 0 Nyongesa Ary. [address], D[place]andiscalista carlie [place], [id number] , [place]. tel: [phone] Referring Provider: Rick Auguste, [place], [address] . tel:[phone] OFFICE VISIT, [facility], [facility] [place] [place], [id number] , [place] tel:[phone] [facility] [place] Fibromyalgia (chief complaint) Chronic pain syndromeFibromy algiaMyalgia, other sitePain in left shoulder Jul-0 5- 0 Will Rick. [address] [place], [id number] , [place]. tel: [phone] Referring Provider: Rick Auguste, [place], [address] . tel:[phone] [facility], [address] [place], [place] [address]C[place], [id number] , [place] tel: [phone] [facility] [place] No Information Jul-0 5 0 Nyongesa Ary. [address] [facility] [address], [place], [id number] , [place]. tel: [phone] Referring Provider: Rick Auguste, [place], [address] . tel:[phone] OFFICE/OUTPAT IENT VISIT, [facility], [address] Andrés [place], [id number] , [place] tel: [phone] [facility] Fibromyalgia (chief complaint) Chronic pain syndromeFibromy algiaMyalgia, other sitePain in left shoulder Oct-0 8-202 0 Nyongesa Ary. [address] [facility] [address], [place], [id number] , [place]. tel: [phone] Referring Provider: Rick Auguste, Zeinab [facility] [place], [address] . tel:[phone] OFFICE/OUTPAT IENT VISIT, [facility], [address] [place] [address] Andrés [place], [id number] , [place] tel: [phone] [facility] [place] Fibromyalgia (chief complaint) Chronic pain syndromeFibromy algiaMyalgia, other sitePain in left shoulderLong term (current) use of opiate analgesic Sep-0 2-202 0 Nyongesa Ary. [address] [facility] [address], [place], [id number] , [place]. tel:[phone] Referring Provider: Rick Auguste, [address] [place], [address] . tel:[phone] OFFICE/OUTPAT IENT VISIT, [facility], [address] [place], [id number] , [place] tel:[phone] [facility] Fibromyalgia (chief complaint) Chronic pain syndromeFibromy algiaMyalgia, other sitePain in left shoulder 0 Virginia Martínez. [address], [place], [id number] , [place]. tel:[phone] Referring Provider: Rick Auguste, [address] [place], [address] . tel:[phone] OFFICE/OUTPAT IENT VISIT, [facility], [address] [place] [address] Andrés [place], [place], [id number] , [place] tel:[phone] [facility] Fibromyalgia (chief complaint) Chronic pain syndromeFibromy algiaEncounter for therapeutic drug level monitoringMyalg ia, other site 0 Francois Mcallister. [address] [facility] [facility] [address], [place], [id number] , [place]. tel:[phone] Referring Provider: Rick Auguste, [address] [place], [address] . tel:[phone] Family History Family Member Type Diagnosis Age At Onset No Information Payers Payer name Insurance type Covered libertarian ID Authorleonaa eryndarien(s) [employer] Medicare PPO Replacement 16 [id number] Social History Type Description Quantity Date Captured Comments Sex Female Smoking Status No Information Chief Complaint And Reason For Visit No Information Reason For Referral Reason For Referral No Information Plan Of Treatment Date Type Action Status Goal OARS. Due on due Goal Medication Recon ciliation. Due on due Goal COMPUTERIZED TABLE CUTTER Paperwork. Due on due Goal AST (SGOT). Due on due Goal Creatinine. Due on due Goal ALT (SGPT). Due on due Goal VALIDATION SCIENTIST Scanned. Due on due Goal UDT. Due [...] Goal Weight. Due on d ue Goal OARS. Due on due Goal UDT. Due on due Goal COMPUTERIZED TABLE CUTTER Paperwork. Due on due Goal Weight. Due [...] Goal Lipid panel. Due on due Goal AST (SGOT). Due on due Goal VALIDATION SCIENTIST Scanned. Due on due Goal Creatinine. Due on due Goal ALT (SGPT). Due on due Goal Order Annual PT. Due on due Goal Creatinine. Due on due Goal UDT. Due on due Goal OARS. Due on due Goal COMPUTERIZED TABLE CUTTER Paperwork. Due on due Goal VALIDATION SCIENTIST Scanned. Due on due Goal AST (SGOT). [...] Social Hi story. Due on due Goal Update Social Hi story. Due on due Goal Weight. Due on d ue Goal PHQ-9. Due on du e Goal Review Allergy L ist. Due on due Goal Tobacco Use. Due on due Goal Medication Recon ciliation. Due on due Goal Height. Due on d ue Goal Order Annual PT. Due on due Goal ALT (SGPT). Due on due Goal AST (SGOT). Due on due Goal VALIDATION SCIENTIST Scanned. Due on due Goal COMPUTERIZED TABLE CUTTER Paperwork. Due on due Goal OARS. Due on due Goal UDT. Due on due Goal Creatinine. Due on due Goal Height. Due on [...] due Goal OARS. Due on due Goal COMPUTERIZED TABLE CUTTER Paperwork. Due on due Goal VALIDATION SCIENTIST Scanned. Due on due Goal AST (SGOT). [...] Date Complaint History Of Prese nt Illness Fibromyalgia Severity level i s 4. Duration: [...] care with [facility] and continue care with [facility]. Notes she does not have any hard feelings against [facility] as the main reason why she wants to switch care is d/t being pt at [facility] Reports current medication regimen provides moderate pain relief and allows for increased functionality. Denies OIC or other side effects from current medication regimen. No other concerns today Comments: Beena santa s a 71 y/o [...] is a 71 y/o female, here via [employer] for virtual follow up and medications refill [...] current medication regimen.No other concerns today Fibromyalgia Severity level i [...] Beena is meeting with us today via [employer] Virtual Visit for following up and medication [...] multitask, she is becoming more involved with moravian.Reports current medication regimen provides 50+% pain relief [...] been completing PT [facility] with benefit and is considering pool PT/exercises.Reports [...] tolerable with medication. She started PT at [facility] on her left shoulder after [...] neurology evaluation results by Dr. Ronda la [facility] from November. Reports no significant relief form last TPI. She is not sure that she will be going back to work and is considering senior care.Reports current medication regimen provides 80% pain relief and allows for increased functionality. Denies side effects from current medication regimen. Reports waking up feeling nauseous and not feeling right in the morning when she takes the tramadol. She reports relief in the past with nortriptyline, but her neurologist weaned her off for unknown reason.No other concerns today. Fibromyalgia Severity level i [...] Patient and her were not comfortable signing COMPUTERIZED TABLE CUTTER today. Fibromyalgia (comments) Beena is here for an [...] helpful.naproxen - helpful.L5 nerve block 2019 at [place] - not helpful.PT - not helpful.TENS - not helpful.Pt goal: [facility] to take over pain management. Fibromyalgia Severity level i s 6. Duration: [...] include diarrhea, dyspnea, fever and incontinence (urinary). Functional Status Date Functional Assessmen t No Information Instructions Date Instruction Additional Infor mation No Information Assessments Type Assessment Date No Information Patient Care Teams Name Effective Dates (start - stop) Status Members No Information
== END 2023-03-19 20:24 | disposition home or self-care (01) ==
LOC: NPINS 20:23
PROVIDERS: PCP Internal Medicine; Visit Provider Psychiatry & Neurology Neurology
DX: F41.9 Anxiety disorder, unspecified (principal); R41.3 Other amnesia
CPT/HCPCS: 82607

== ENCOUNTER 2023-07-03 15:51 | Outpatient (CLI) | payer OTHER, SELFPAY ==
--- OUTSIDE RECORDS SUMMARY | 2023-07-03 15:55 | XMS_ITS | Continuity of Care Document ---
Author Name Unknown Organization [facility] Address [address] [facility] [place] [address] Phone Care Team Providers Care Manager Epic Name Role Phone Francois JANEY Ary Unavailable [...] Diagnoses Date Provider Providers Copied on Encounter [facility], [address] [place], [place], [id number] , [place] tel: [phone] [facility] [place] No Information 2 Francois Mcallister. [address] [facility] [address], [place], [id number] , [place]. tel:[phone] OFFICE/OUTPAT IENT VISIT, EST [facility], [address] [place], [place], [id number] , [place] tel:[phone] [facility] [place] Fibromyalgia (chief complaint) Chronic pain syndromePain in left shoulderPain in right kneePain in left kneeMyalgia, other siteFibromyalgi a 2 Francois Mcallister. [address] [facility] [address], [place], [id number] , [place]. tel:[phone] Referring Provider: Rick Auguste, [address], [address] . tel:[phone] OFFICE/OUTPAT IENT VISIT, [facility], [address] [place] [address] Andrés [place], [id number] , [place] tel: [phone] [facility] Fibromyalgia (chief complaint) Chronic pain syndromePain in left shoulderMyalgia , other siteFibromyalgi aPain in left kneePain in right knee January-0 2 Nyongesa Ary. [address] [facility] [address], [place], [id number] , [place]. tel: [phone] Referring Provider: Rick Auguste, [place], [address] . tel:[phone] OFFICE VISIT, [facility], [address] [place] [address] Andrés [place], [place], [id number] , [place] tel: [phone] [facility] Fibromyalgia (chief complaint) Chronic pain syndromeFibromy algiaMyalgia, other sitePain in left shoulder Aug- 1 Nyongesa Ary. [address] [facility] [address], [place], [id number] , [place]. tel: [phone] Referring Provider: Rick Auguste, Zeinab [facility] [place], [address] . tel:[phone] OFFICE/OUTPAT IENT VISIT, [facility], [address] [place] [address] [place], [id number] , [place] tel: [phone] [facility] Fibromyalgia (chief complaint) Chronic pain syndromeFibromy algiaMyalgia, other sitePain in left shoulder Larry-0 1 Nyongesa Ary. [address] [facility] [address], [place], [id number] , [place]. tel: [phone] Referring Provider: Rick Auguste, [place], [address] . tel:[phone] OFFICE VISIT, [facility], [address] [place], [id number] , [place] tel: [phone] [facility] [place] Fibromyalgia (chief complaint) Chronic pain syndromeFibromy algiaMyalgia, other sitePain in left shoulder 1 Nyongesa Ary. [address] [facility] [address], [place], [id number] , [place]. tel: [phone] Referring Provider: Rick Auguste, [address] [place], [address] . tel:[phone] OFFICE/OUTPAT IENT VISIT, [facility], [address] [place], [place] [address]C[place], [id number] , [place] tel: [phone] [facility] Fibromyalgia (chief complaint) Chronic pain syndromeFibromy algiaMyalgia, other sitePain in left shoulder 1 Nyongesa Ary. [address] [facility] [address], [place] car[place], [id number] , [place]. tel: [phone] Referring Provider: Rick Auguste, [place], [address] . tel:[phone] OFFICE/OUTPAT IENT VISIT, [facility], [address] [place], [place] [address]C[place], [id number] , [place] tel: [phone] [facility] Fibromyalgia (chief complaint) Chronic pain syndromeFibromy algiaMyalgia, other sitePain in left shoulder 0 Nyongesa Ary. [address] [facility] [address] [facility] [address], [place]andiscalista car[place], [id number] , [place]. tel: [phone] Referring Provider: Rick Auguste, [place], [address] . tel:[phone] OFFICE VISIT, [facility], [address] Hospital[facility] [place], [id number] , [place] tel:[phone] [facility] [place] Fibromyalgia (chief complaint) Chronic pain syndromeFibromy algiaMyalgia, other sitePain in left shoulder Jul-0 5- 0 Will Rick. [address] [place], [address] , [place]. tel: [phone] Referring Provider: Rick Auguste, [place], [address] . tel:[phone] [facility], [address] [place], [place] [address]Cary [place], [id number] , [place] tel: [phone] [facility] [place] No Information Jul-0 5 0 Nyongesa Ary. [address] [facility] [address], [place], [id number] , [place]. tel: [phone] Referring Provider: Rick Auguste, [place], [address] . tel:[phone] OFFICE/OUTPAT IENT VISIT, [facility], [facility] Andrés [place], [id number] , [place] tel: [phone] [facility] Fibromyalgia (chief complaint) Chronic pain syndromeFibromy algiaMyalgia, other sitePain in left shoulder Oct-0 8-202 0 Nyongesa Ary. [address] [facility] [address], [place], [id number] , [place]. tel: [phone] Referring Provider: Rick Auguste, Zeinab [facility] [place], [address] . tel:[phone] OFFICE/OUTPAT IENT VISIT, [facility], [address] [place] [address] Andrés [place], [id number] , [place] tel: [phone] [facility] [place] Fibromyalgia (chief complaint) Chronic pain syndromeFibromy algiaMyalgia, other sitePain in left shoulderLong term (current) use of opiate analgesic Sep-0 2-202 0 Nyongesa Ary. [address] [facility] [address], [place], [id number] , [place]. tel:[phone] Referring Provider: Rick Auguste, [address] [place], [address] . tel:[phone] OFFICE/OUTPAT IENT VISIT, [facility], [address] [facility] [place], [id number] , [place] tel:[phone] [facility] Fibromyalgia (chief complaint) Chronic pain syndromeFibromy algiaMyalgia, other sitePain in left shoulder 0 Virginia Martínez. [address] [facility] [address], [place], [id number] , [place]. tel:[phone] Referring Provider: Rick Auguste, [address] [place], [address] . tel:[phone] OFFICE/OUTPAT IENT VISIT, [facility], [address] [place] [address] Andrés [place], [place], [id number] , [place] tel:[phone] [facility] Fibromyalgia (chief complaint) Chronic pain syndromeFibromy algiaEncounter for therapeutic drug level monitoringMyalg ia, other site 0 Francois Mcallister. [address] [facility] [address], [place], [id number] , [place]. tel:[phone] Referring Provider: Rick Auguste, [address] [place], [address] . tel:[phone] Family History Family Member Type Diagnosis Age At Onset No Information Payers Payer name Insurance type Covered green party ID Authorleonaa eryndarien(s) [employer] Medicare PPO Replacement [id number] Social History Type Description Quantity Date Captured Comments Sex Female Smoking Status No Information Chief Complaint And Reason For Visit No Information Reason For Referral Reason For Referral No Information Plan Of Treatment Date Type Action Status Goal OARS. Due on due Goal CORRECTION OFFICER SUPERVISOR Paperwork. Due on due Goal AST (SGOT). Due on due Goal Creatinine. Due on due Goal ALT (SGPT). Due on due Goal PICKER/PULLER Scanned. Due on due Goal UDT. Due [...] due Goal Creatinine. Due on due Goal PICKER/PULLER Scanned. Due on due Goal AST (SGOT). Due on due Goal OARS. Due on due Goal UDT. Due on due Goal CORRECTION OFFICER SUPERVISOR Paperwork. Due on due Goal Weight. Due [...] due Goal OARS. Due on due Goal CORRECTION OFFICER SUPERVISOR Paperwork. Due on due Goal PICKER/PULLER Scanned. Due on due Goal AST (SGOT). [...] due Goal OARS. Due on due Goal CORRECTION OFFICER SUPERVISOR Paperwork. Due on due Goal PICKER/PULLER Scanned. Due on due Goal AST (SGOT). [...] due Goal OARS. Due on due Goal CORRECTION OFFICER SUPERVISOR Paperwork. Due on due Goal PICKER/PULLER Scanned. Due on due Goal AST (SGOT). [...] with [facility] and continue care with [facility]. Notes she does not have any hard feelings against [facility] as the main reason why she wants to switch care is d/t being pt at [facility] Reports current medication regimen [...] is a 71 y/o female, here via [employer] for virtual follow up and medications refill [...] Beena is meeting with us today via [employer] Virtual Visit for following up and medication [...] multitask, she is becoming more involved with druze.Reports current medication regimen provides 50+% pain relief [...] been completing PT at [facility] [place] with benefit and is considering pool PT/exercises.Reports [...] tolerable with medication. She started PT at [facility] on her left shoulder [...] neurology evaluation results by Dr. Ronda la [facility] from November. Reports no significant relief form last TPI. She is not sure that she will be going back to work and is considering jail.Reports current medication regimen provides 80% pain relief [...] Patient and her were not comfortable signing CORRECTION OFFICER SUPERVISOR today. Fibromyalgia Severity level i s 6. [...]
== END 2023-07-03 15:52 | disposition home or self-care (01) ==
PROVIDERS: PCP Family Medicine; Visit Provider Family Medicine
DX: R63.4 Abnormal weight loss (principal); E78.5 Hyperlipidemia, unspecified; E21.3 Hyperparathyroidism, unspecified
CPT/HCPCS: 80053; 84443

== ENCOUNTER 2023-08-06 13:43 | Outpatient (CLI) | payer OTHER, SELFPAY ==
--- NOTE | 2023-08-06 14:00 | CRLHL7_ITS ---
For Patients: As a result of the Century Cures Act, medical imaging exams and procedure reports are released immediately into your electronic medical record. You may view this report before your referring provider. If you have questions, please contact your health care provider. DXA BONE MINERAL DENSITY STUDY Current height (in): 66.0. Weight (lb): 127.0. Menopause age: 52. Ethnicity: White. Reason for exam: Screening for osteoporosis. 1. Have you had a previous hip or vertebral fracture? No. 2. Have you had any fractures during your adult life which did not result from significant trauma (e.g., auto accident)? No. 3. Did either of your parents have a hip fracture? Yes. 4. Do you smoke? No. 5. Have you ever taken Glucocorticoids? No. 6. Do you have rheumatoid arthritis? No. 7. Do you have secondary osteoporosis? No. 8. Do you drink 3 or more alcoholic drinks per day? No. 9. Are you being treated for osteoporosis? No. 10. Have you ever taken any of the following medications: Actonel, Evista, Fosamax, Miacalcin, Reclast, Boniva, Forteo, HRT (i.e. estrogen/hormone therapy), Protelos, Prolia, Vitamin D, Calcium, other ??? please specify. ANSWER: Yes, vitamin D, calcium. 11. Do you have any of the following medical conditions: Anorexia or bulimia, asthma or emphysema, end stage renal disease, hyperparathyroidism, any seizure disorders, cancer, inflammatory bowel diseases, hysterectomy, other ??? please specify. ANSWER: Yes, hysterectomy. 12. What was your maximum height (inches)? 66. 13. Do you perform weight bearing exercise regularly? No. 14. Do you regularly consume dairy products? Yes. 15. Do you drink caffeinated beverages? No. 16. At what age did your period start? 14. 17. Are you premenopausal? No. 18. How many full term pregnancies have you had? 1. 19. Have you ever missed your period for more than 6 months in a row (not including or menopause)? No. TECHNIQUE: Bone mineral density study was performed using the [employer]. FINDINGS: The results of the study expressed as bone mineral density (BMD) are as follows: Lumbar spine L1 to L4: BMD: 0.974 g/cm2. T-score: -0.7. Z-score: 1.6. Neck Right: BMD: 0.784 g/cm2. T-score: -0.6. Z-score: 1.4. Total Right: BMD: 0.881 g/cm2. T-score: -0.5. Z-score: 1.2. IMPRESSION: Normal bone density. *Comparison exams done prior to 02/2020 were performed on different unit, [employer]. COMPARISON: Compared with scan of 12/10/2011, the bone mineral density has decreased by 6.9 percent at the spine and decreased by 9.1 percent at the right hip. Kendall Macias M.D. Diagnostic Radiologist [email or web address] Transcribed: 6:08 pm DW/Dictated by: Kendall Macias MD @ 08/07/2023 9:05:00 AM (Electronically Signed)
== END 2023-08-06 13:44 | disposition home or self-care (01) ==
LOC: RAD 13:46
PROVIDERS: PCP Family Medicine; Visit Provider Family Medicine
DX: Z13.820 Encounter for screening for osteoporosis (principal)
CPT/HCPCS: 77080

== ENCOUNTER 2023-09-24 17:20 | Outpatient (CLI) | payer OTHER, SELFPAY ==
--- OUTSIDE RECORDS SUMMARY | 2023-09-26 07:54 | XMS_ITS | Continuity of Care Document ---
Author Name Unknown Organization [facility] Address [address] [place] [address] Phone Care Team Providers Care Steel Placer Name Role Phone Francois JANEY Ary Unavailable [...] Diagnoses Date Provider Providers Copied on Encounter [facility], [address], [place], [id number] , [place] tel: [phone] [facility] [place] No Information 2 Francois Mcallister. [address] [facility] [address], [place], [id number] , [place]. tel:[phone] OFFICE/OUTPAT IENT VISIT, EST [facility], [address] [place], [place], [id number] , [place] tel:[phone] [facility] [place] Fibromyalgia (chief complaint) Chronic pain syndromePain in left shoulderPain in right kneePain in left kneeMyalgia, other siteFibromyalgi a 2 Francois Mcallister. [address] [facility] [address], [place], [id number] , [place]. tel:[phone] Referring Provider: Rick Auguste, [address] [place], [address] . tel:[phone] OFFICE/OUTPAT IENT VISIT, [facility], [address] [place] [address] Andrés [place], [id number] , [place] tel: [phone] [facility] Fibromyalgia (chief complaint) Chronic pain syndromePain in left shoulderMyalgia , other siteFibromyalgi aPain in left kneePain in right knee January-0 2 Nyongesa Ary. [address], [place], [id number] , [place]. tel: [phone] Referring Provider: Rick Auguste, [place], [address] . tel:[phone] OFFICE VISIT, [facility], [address] [place] [address] Andrés [place], [place], [id number] , [place] tel: [phone] [facility] Fibromyalgia (chief complaint) Chronic pain syndromeFibromy algiaMyalgia, other sitePain in left shoulder Aug- 1 Nyongesa Ary. [address] [facility] [address] [facility] [address], [place], [id number] , [place]. tel: [phone] Referring Provider: Rick Auguste, [address] [facility] [place], [address] . tel:[phone] OFFICE/OUTPAT IENT VISIT, [facility], [address] [place] [address] [place], [place], [id number] , [place] tel: [phone] [facility] Fibromyalgia (chief complaint) Chronic pain syndromeFibromy algiaMyalgia, other sitePain in left shoulder Larry-0 1 Nyongesa Ary. [address], [place], [id number] , [place]. tel: [phone] Referring Provider: Rick Auguste, [place], [address] . tel:[phone] OFFICE VISIT, [facility], [address] [place], [id number] , [place] tel: [phone] [facility] [place] Fibromyalgia (chief complaint) Chronic pain syndromeFibromy algiaMyalgia, other sitePain in left shoulder 1 Nyongesa Ary. [address] [facility] [address], [place], [id number] , [place]. tel: [phone] Referring Provider: Rick Auguste, [address] [place], [address] . tel:[phone] OFFICE/OUTPAT IENT VISIT, [facility], [address] [place], [place] [address]C[place], [id number] , [place] tel: [phone] [facility] Fibromyalgia (chief complaint) Chronic pain syndromeFibromy algiaMyalgia, other sitePain in left shoulder 1 Nyongesa Ary. [address], [place], [id number] , [place]. tel: [phone] Referring Provider: Rick Auguste, [place], [address] . tel:[phone] OFFICE/OUTPAT IENT VISIT, [facility], [address] [place], [place] [address]C[place], [id number] , [place] tel: [phone] [facility] Fibromyalgia (chief complaint) Chronic pain syndromeFibromy algiaMyalgia, other sitePain in left shoulder 0 Nyongesa Ary. [address], [place], [id number] , [place]. tel: [phone] Referring Provider: Rick Auguste, [place], [address] . tel:[phone] OFFICE VISIT, [facility], [address] [place] [place], [id number] , [place] tel:[phone] [facility] [place] Fibromyalgia (chief complaint) Chronic pain syndromeFibromy algiaMyalgia, other sitePain in left shoulder Jul-0 5- 0 Will Rick. [address] [place], [id number] , [place]. tel: [phone] Referring Provider: Rick Auguste, [place], [address] . tel:[phone] [facility], [address] [place], [place] [address], [id number] , [place] tel: [phone] [facility] [place] No Information Jul-0 5 0 Nyongesa Ary. [address] [facility] [address], [place], [id number] , [place]. tel: [phone] Referring Provider: Rick Auguste, [place], [address] . tel:[phone] OFFICE/OUTPAT IENT VISIT, [facility], [address] [address] [place], [id number] , [place] tel: [phone] [facility] Fibromyalgia (chief complaint) Chronic pain syndromeFibromy algiaMyalgia, other sitePain in left shoulder Oct-0 8-202 0 Nyongesa Ary. [address] [facility] [address] [facility] [address], [place], [id number] , [place]. tel: [phone] Referring Provider: Rick Auguste, [address] [facility] [place], [address] . tel:[phone] OFFICE/OUTPAT IENT VISIT, [facility], [address] [place] [address] [place], [id number] , [place] tel: [phone] [facility] [place] Fibromyalgia (chief complaint) Chronic pain syndromeFibromy algiaMyalgia, other sitePain in left shoulderLong term (current) use of opiate analgesic Sep-0 2-202 0 Nyongesa Ary. [address] [facility] [address], [place], [id number] , [place]. tel:[phone] Referring Provider: Rick Auguste, [address] [place], [address] . tel:[phone] OFFICE/OUTPAT IENT VISIT, [facility], [address] [place], [id number] , [place] tel:[phone] [facility] Fibromyalgia (chief complaint) Chronic pain syndromeFibromy algiaMyalgia, other sitePain in left shoulder 0 Virginia Martínez. [address], [place], [id number] , [place]. tel:[phone] Referring Provider: Rick Auguste, [address] [place], [address] . tel:[phone] OFFICE/OUTPAT IENT VISIT, [facility], [address] [place] [address] And[place]és [place], [place], [id number] , [place] tel:[phone] [facility] Fibromyalgia (chief complaint) Chronic pain syndromeFibromy algiaEncounter for therapeutic drug level monitoringMyalg ia, other site 0 Francois Mcallister. [address], [place], [id number] , [place]. tel:[phone] Referring Provider: Rick Auguste, [address] [place], [address] . tel:[phone] Family History Family Member Type Diagnosis Age At Onset No Information Payers Payer name Insurance type Covered green party ID Authorleonaa eryndarien(s) [employer] Medicare PPO Replacement 16 [id number] Social History Type Description Quantity Date Captured Comments Sex Female Smoking Status No Information Chief Complaint And Reason For Visit No Information Reason For Referral Reason For Referral No Information Plan Of Treatment Date Type Action Status Goal OARS. Due on due Goal Medication Recon ciliation. Due on due Goal CALIBRATION CHECKER Paperwork. Due on due Goal AST (SGOT). Due on due Goal Creatinine. Due on due Goal ALT (SGPT). Due on due Goal BREAD RACKER Scanned. Due on due Goal UDT. Due [...] Goal Weight. Due on d ue Goal Order Annual PT. Due on due Goal Lipid panel. Due on due Goal ALT (SGPT). Due on due Goal Creatinine. Due on due Goal BREAD RACKER Scanned. Due on due Goal AST (SGOT). Due on due Goal OARS. Due on due Goal UDT. Due on due Goal CALIBRATION CHECKER Paperwork. Due on due Goal Weight. Due [...] C scre ening. Due on due Goal Creatinine. Due on due Goal UDT. Due on due Goal OARS. Due on due Goal CALIBRATION CHECKER Paperwork. Due on due Goal BREAD RACKER Scanned. Due on due Goal AST (SGOT). [...] Social Hi story. Due on due Goal AST (SGOT). Due [...] Social Hi story. Due on due Goal BREAD RACKER Scanned. Due on due Goal CALIBRATION CHECKER Paperwork. Due on due Goal OARS. Due on due Goal UDT. Due on due Goal Creatinine. Due on due Goal Order Annual PT. Due on due Goal ALT (SGPT). Due on due Goal AST (SGOT). Due on due Goal BREAD RACKER Scanned. Due on due Goal CALIBRATION CHECKER Paperwork. Due on due Goal OARS. Due on due Goal UDT. Due on due Goal Creatinine. Due on due Goal Update Social Hi story. Due on due Goal Weight. Due on d ue Goal PHQ-9. Due on du e Goal Review Allergy L ist. Due on due Goal Tobacco Use. Due on due Goal Medication Recon ciliation. Due on due Goal Height. Due on d ue Future Order: Radiology Order X- Ray Exam [...] care with [facility] and continue care with [facility]. Notes she does not have any hard feelings against [facility] as the main reason why she wants to switch care is d/t being pt at [facility] Reports current medication regimen provides moderate pain relief and allows for increased functionality. Denies OIC or other side effects from current medication regimen. No other concerns today Fibromyalgia Duration: chroni c. [...] other concerns today Fibromyalgia (comments) Beena is a 71 y/o [...] Beena is meeting with us today via [facility] for following up and medication refill. [...] from diclofenac gel.No other concerns today. Fibromyalgia (comments) Beena pre sents in clinic [...] multitask, she is becoming more involved with yarsani.Reports current medication regimen provides 50+% pain relief [...] been completing PT [facility] benefit and is considering pool PT/exercises.Reports [...] tolerable with medication. She started PT at [facility] on her left shoulder after having sharp pain.Reports current medication (Cymbalta)regimen provides significant pain relief and allows for increased functionality. Denies side effects from current medication regimen. She inquires about increasing Cymbalta, reports her mind is clearer compared to taking other nerve medication such as nortriptyline.No other concerns today. Fibromyalgia (comments) Beena is here for a follow up and medications refill. Fibromyalgia pain persists this month, tolerable with medication. The pain is most intense at night. She is still waiting for the neurology evaluation results by Dr. Ronda la [facility] from November. Reports no significant relief form last TPI. She is not sure that she will be going back to work and is considering senior living.Reports current medication regimen provides 80% pain relief [...] Patient and her were not comfortable signing CALIBRATION CHECKER today. Fibromyalgia Duration: chroni c. Location of [...] helpful.naproxen - helpful.L5 nerve block 2019 at [facility] - not helpful.PT - not helpful.TENS - [...]
--- OUTSIDE RECORDS SUMMARY | 2023-09-26 07:54 | XMS_ITS | Continuity of Care Document ---
Author Name Unknown Organization [facility] Address [address] [place] [address] Phone Care Team Providers Care Acquisition Specialist Name Role Phone RN, RN Unavailable Unavailable Allergies, Adverse Reactions, Alerts Substance Reaction Status Criticality No Known Allergies Active No Inform ation Medications Medication Instructions Dosage Effective Dates (start - stop) Status Comments hydroxyzine HCl 25 mg tablet take 1 tablet by oral route 4 times every day as needed 25 MG - Active duloxetine 60 mg capsule,delayed release take 1 capsule by oral route every day 60 MG - Active fluorometholone 0.1 % eye drops,suspension instill 1 drop by ophthalmic route 2 times every day into affected eye(s) 1 drop - Active brimonidine tartrate (bulk) 100 % powder - Active estradiol 0.5 mg tablet take 1 tablet by oral route every day days 1-21 0.5 MG - Active latanoprost 0.005 % eye drops instill 1 drop by ophthalmic route every day into affected eye(s) in the evening 1.00 drop - Active simvastatin 20 mg tablet take 1 tablet by oral route every day in the evening 20 MG - Active dorzolamide 22.3 mg-timolol 6.8 mg/mL eye drops instill 1 drop by ophthalmic route 2 times every day into affected eye(s) 1.00 drop - Active spironolactone 50 mg tablet take 1 tablet by oral route every day 50 MG - Active aspirin 81 mg tablet,delayed release take 1 tablet by oral route every day 81 MG - Active brimonidine 0.2 % eye drops instill 1 drop by ophthalmic route every 8 hours into affected eye(s) 1.00 drop - Active diclofenac 1 % topical gel apply 2 gram by topical route 4 times every day to the affected area(s) 2.00 gram - Active duloxetine 30 mg capsule,delayed release take 3 capsule by oral route every day 90 MG - Active multivitamin with iron tablet - Active sodium chloride 5 % eye ointment - Active Procedures Procedure Date Est Pt Eval 25 Min Est Pt Eval 25 Min Telehealth 3 Inject, Spine, Cerv/Thor, Epi/subarc w/i mg Guid Inject, Spine, Cerv/Thor, Epi/subarc w/i mg Guid Verified No Separate Anesthesia 023 Est Pt Eval 25 Min Telehealth 2 Inject, Spine, Cerv/Thor, Epi/subarc w/i mg Guid Inject, Spine, Cerv/Thor, Epi/subarc w/i mg Guid CC Control For Rem/Void Of Mutually Excl usive Proc Est Pt Eval 25 Min New Pt Eval 45 Min Advance Directives Directive Yes / No Effective Date File Name No Information Encounters Encounter Description Practice Location Reason(s) For Visit Diagnoses Date Provider Providers Copied on Encounter BOO Trujillo, [address], [place], [place], [id number], [place] tel:[phone] [facility] No Information 3 RN RN. [address], [facility] [place], [id number], [place]. tel:[phone] Est Pt Eval 25 Min BOO Trujillo, [address], [place], [place], [address], [place] tel:[phone] [facility] bilateral neck pain (chief complaint) Radiculopathy, cervical region 3 Medley Judy. [address], [place], [address], [place]. tel:[phone] Referring Provider: Lee Norwood, [address], [place], [address] . tel:[phone] Est Pt Eval 25 Min Telehealth [facility], [address], [place], [place], [id number], [place] tel:[phone] [facility] back pain (chief complaint) Hand Pain (chief complaint) Radiculopathy, cervical regionLow back pain, unspecifiedPain in left handPain in unspecified shoulderBody mass index (BMI) 22.0-22.9, adult Mar-0 3 Ketola Comanche. [address], [place], [place], [address], [place]. tel:[phone] Referring Provider: Lee Norwood, [address], [place], [address] . tel:[phone] [facility], [address], [place], [address], [place] tel:[phone] [facility] Radiculopathy, cervical regionRadiculopathy , cervical region 3 [facility]. [address], [place], [place], [address], [place]. tel:[phone] Referring Provider: Parker Quinonez, [address], [place], [address]. tel:[phone] [facility], [address], [place], [place], [address], [place] tel:[phone] [facility] No Information 3 Dexter Canales. [address], [place], [address], [place]. tel:[phone] Referring Provider: Parker Quinonez, [address], [place], [address]. tel:[phone] [facility], [address], [place], [place], [id number], [place] tel:[phone] [facility] No Information 3 Dexter Canales. [address], [place], [address], [place]. tel:[phone] Referring Provider: Parker Quinonez, [address], [place], [address]. tel:[phone] Est Pt Eval 25 Min Telehealth [facility], [address], [place], [place], [id number], [place] tel:[phone] [facility] Left hand pain (chief complaint) Radiculopathy, cervical regionPain in unspecified shoulderLow back pain, unspecifiedPain in left handBody mass index (BMI) 24.0-24.9, adult 2 Ketola Ursula. [address], [place], [place], [address], [place]. tel:[phone] Referring Provider: Lee Norwood, [address], [place], [address] . tel:[phone] [facility], [address], [place], [place], [id number], [place] tel:[phone] [facility] No Information 2 Stone Morrow. [address], [place], [address], [place]. tel:[phone] Referring Provider: Cristhian Ritter, [address], [place], [address]. tel:[phone] [facility], [address], [place], [address], [place] tel:[phone] [facility] bilateral neck pain (chief complaint) Radiculopathy, cervical regionRadiculopathy , cervical region Dec- 2 [facility]. [address], [place], [place], [address], [place]. tel:[phone] Referring Provider: Kendall Rodriguez, [address], [place], [address] . tel:[phone] Est Pt Eval 25 Min Ronnie, [facility], [address], [place], [place], [id number], [place] tel:[phone] [facility] bilateral shoulder pain (chief complaint) Low back pain, unspecifiedRadiculo enzo, cervical regionPain in unspecified shoulderFibromyalgi aPain in left hand 2 Ketola Ursula. [address], [place], [id number], [place]. tel:[phone] Referring Provider: Lee Norwood, [address], [place], [address] . tel:[phone] New Pt Eval 45 Min Ronnie, [facility], [address], [place], [place], [address], [place] tel:[phone] [facility] All Over Body Pain (chief complaint) FibromyalgiaRadicul opathy, cervical regionPain in unspecified shoulderLow back pain, unspecifiedRadiculo enzo, lumbar regionBody mass index (BMI) 25.0-25.9, adult Sep-2 2 Enma Howard. [address], [place], [id number], [place]. tel:[phone] Referring Provider: Lee Norwood, [address], [place], [address] . tel:[phone] Family History Family Member Type Diagnosis Age At Onset No Information Payers Payer name Insurance type Covered libertarian ID Sparkle caicedo(s) [employer] Medicare PPO 16 [id number] Social History Type Description Quantity Date Captured Comments Alcohol Use Details Unknown Caffeine Use Details Unknown Tobacco Use Status No Information Smoking Status No Information Sex Female Chief Complaint And Reason For Visit No Information Reason For Referral Reason For Referral No Information Plan Of Treatment Date Type Action Status Goal Lifestyle education regardin g diet completed Goal Lifestyle education regardin g diet completed Goal Lifestyle education regardin g diet completed Referral Referred To: cervical epidural steroid injection Ordered: cervical epidural steroid injection on both sides C3-4 and C6-7 ordered Referral Referred To: Physical Therapy Ordered: Physical Therapy. Evaluate and treat ordered History Of Present Illness Encounter Date Complaint History Of Prese nt Illness bilateral neck pain Associated s ymptoms include radiation of pain to ty. shoulders and hands.. Hand Pain Severity level i s 5. Location: left greater than right. The pain is aching. The pain is aggravated by lifting and movement. The pain is relieved by OTC medicines: ibuprofen and rest. back pain Severity level i s 5. Location of pain is lower back. Pain is radiated to the left hip and leg. The patient describes the pain as an ache. Symptoms are aggravated by daily activities. Symptoms are relieved by over the counter medication: ibuprofen and rest. Left hand pain The problem is i mproving. Location: left hand. The pain is aggravated by daily activities. bilateral neck pain The symptoms are reported as being moderate. The symptoms occur daily. The patient states the symptoms are chronic. bilateral shoulder pain It occur s constantly. Location: bilateral left hand. The pain is relieved by rest and stretching. All Over Body Pain The symptoms are reported as being 3. The location is both shoulders, arms, and hands. Functional Status Date Functional Assessmen t No Information Instructions Date Instruction Additional Infor mation -Refill and continue Hydroxyzine 25mg 1x a day for fill-Ordered a cervical epidural steroid injection at C5-6 today, once approved, scheduling will reach out to create an appointment.-Can consider a cervical medial branch block series with cervical radiofrequency ablation for the future-Follow up with ALEXANDRO in one month, telehealth ok Related to Radiculopathy, cervical region Same plan of care as statement for above diagnosis, no changes Related to Pain in unspecified shoulder Same plan of care as statement for above diagnosis, no changes Related to Pain in left hand - Consider repeat Ce rvical Epidural Steroid Injection in the future- Consider Cervical Medial Branch Block in the future- Consider Cervical Radiofrequency Ablation if the Branch Blocks provide you with at least 80% pain relief- Consider Spinal Cord Stimulator in the future- Schedule physical therapy- Discontinue Duloxetine 60mg- Exercise daily- Refill and continue Hydroxyzine 25mg 1x/day as needed, for fill 11/30/22- Follow-up as needed, telehealth OK Related to Radiculopathy, cervical region - Consider Lumbar Ep idural Steroid Injections in future Related to Low back pain, unspecified Lifestyle education regarding di et Related to Body mass index [BMI] 22.0-22.9, adult -Repeat BHARTI if pain returns-Schedule SCS trial for cervical pain-Follow up in the clinic Related to Radiculopathy, cervical region Same plan of care as statement for above diagnosis, no changes Related to Pain in left hand - Consider Lumbar Ep idural Steroid Injections in future Related to Low back pain, unspecified - Schedule Cervical Epidural Steroid Injection at the C-7/T1 once ready, ordered todayIf you would like conscious sedation, please make sure to have a bus van driver with you on the day of your procedure; inform them to use half the dose- Consider Cervical Medial Branch Block in the future- Consider Cervical Radiofrequency Ablation- Schedule physical therapy- Will take over your Duloxetine 60mg , will refill today.- Exercise daily- Continue Hydroxyzine 25mg 1x/day as needed- Follow-up as needed, telehealth [place] Related to Radiculopathy, cervical region Same plan of care as statement for above diagnosis, no changes Related to Pain in unspecified shoulder Lifestyle education regarding di et Related to Body mass index [BMI] 24.0-24.9, adult - Follow up in the clinic in 2-3 weeks Related to Radiculopathy, cervical region Same plan of care as statement for above diagnosis, no changes Related to Pain in left hand - Consider Lumbar Ep idural Steroid Injections in future Related to Low back pain, unspecified Same plan of care as statement for above diagnosis, no changes Related to Pain in unspecified shoulder - Schedule Cervical Epidural Steroid Injection at the C-6/7 and C-3/4, ordered todayIf you would like conscious sedation, please make sure to have a bus van driver with you on the day of your procedure- Consider Cervical Medial Branch Block in the future- Consider Cervical Radiofrequency Ablation- Schedule physical therapy- Will take over your Duloxetine 60mg , will refill today.- Exercise daily- Continue Hydroxyzine 25mg 1x/day as needed- Follow-up after cervical epidural steroid injections; telehealth [place] Related to Radiculopathy, cervical region Same plan of care as statement for above diagnosis, no changes Related to Fibromyalgia Same plan of care as statement for above diagnosis, no changes Related to Radiculopathy, lumbar region Same plan of care as statement for above diagnosis, no changes Related to Fibromyalgia Same plan of care as statement for above diagnosis, no changes Related to Pain in unspecified shoulder -Order lumbar MRI at [facility]-Order stationary neutral A/P and lateral views x rays at [facility] -Order lateral flexion vs extension x ray of the lumbar spine at [facility] Related to Low back pain, unspecified -Order cervical MRI at [facility]-Schedule physical therapy-Exercise daily-Prescribe Hydroxyzine 25mg 1x/day as needed-Will consider injections after reviewing imaging-Follow up with advanced practice provider in 4 weeks Related to Radiculopathy, cervical region Lifestyle education regarding di et Related to Body mass index [BMI] 25.0-25.9, adult Assessments Type Assessment Date No Information Patient Care Teams Name Effective Dates (start - stop) Status Members No Information
== END 2023-09-24 17:21 | disposition home or self-care (01) ==
LOC: NFLDREF 09-26 07:52
PROVIDERS: PCP Family Medicine; Referring Provider Family Medicine; Visit Provider Nurse Practitioner
DX: R30.0 Dysuria (principal); B37.9 Candidiasis, unspecified
CPT/HCPCS: 87086

== ENCOUNTER 2023-11-15 13:56 | Outpatient (CLI) | payer MEDICARE, SELFPAY ==
--- OUTSIDE RECORDS SUMMARY | 2023-11-15 14:00 | XMS_ITS | Continuity of Care Document ---
Author Name Unknown Organization [facility] Address [address] [facility] [place] [address] Phone Care Team Providers Care Orthodontist Name Role Phone Francois JANEY Ary Unavailable [...] Diagnoses Date Provider Providers Copied on Encounter [facility], [address] [place], [place], [id number] , [place] tel: [phone] [facility] [place] No Information 2 Francois Mcallister. [address] [facility] [address], [place], [id number] , [place]. tel:[phone] OFFICE/OUTPAT IENT VISIT, EST [facility], [address] [place], [place], [id number] , [place] tel:[phone] [facility] [place] Fibromyalgia (chief complaint) Chronic pain syndromePain in left shoulderPain in right kneePain in left kneeMyalgia, other siteFibromyalgi a 2 Francois Mcallister. [address] [facility] [address], [place], [id number] , [place]. tel:[phone] Referring Provider: Rick Auguste, [address], [address] . tel:[phone] OFFICE/OUTPAT IENT VISIT, [facility], [address] [place] [address] Andrés [place], [id number] , [place] tel: [phone] [facility] Fibromyalgia (chief complaint) Chronic pain syndromePain in left shoulderMyalgia , other siteFibromyalgi aPain in left kneePain in right knee January-0 2 Nyongesa Ary. [address] [facility] [address], [place], [id number] , [place]. tel: [phone] Referring Provider: Rick Auguste, [place], [address] . tel:[phone] OFFICE VISIT, [facility], [address] [place] [address] Andrés [place], [place], [id number] , [place] tel: [phone] [facility] Fibromyalgia (chief complaint) Chronic pain syndromeFibromy algiaMyalgia, other sitePain in left shoulder Aug- 1 Nyongesa Ary. [address] [facility] [address], [place], [id number] , [place]. tel: [phone] Referring Provider: Rick Auguste, [address] [facility] [place], [address] . tel:[phone] OFFICE/OUTPAT IENT VISIT, [facility], [address] [place] [address] [place], [id number] , [place] tel: [phone] [facility] Fibromyalgia (chief complaint) Chronic pain syndromeFibromy algiaMyalgia, other sitePain in left shoulder Larry-0 1 Nyongesa Ary. [address] [facility] [address], [place], [id number] , [place]. tel: [phone] Referring Provider: Rick Auguste, [place], [address] . tel:[phone] OFFICE VISIT, [facility], [address] [place], [id number] , [place] tel: [phone] [facility] [place] Fibromyalgia (chief complaint) Chronic pain syndromeFibromy algiaMyalgia, other sitePain in left shoulder 1 Nyongesa Ary. [address] [facility] [address], [place], [id number] , [place]. tel: [phone] Referring Provider: Rick Auguste, [address] [place], [address] . tel:[phone] OFFICE/OUTPAT IENT VISIT, [facility], [address] [place], [place] [address]C[place], [id number] , [place] tel: [phone] [facility] Fibromyalgia (chief complaint) Chronic pain syndromeFibromy algiaMyalgia, other sitePain in left shoulder 1 Nyongesa Ary. [address] [facility] [address], [place], [id number] , [place]. tel: [phone] Referring Provider: Rick Auguste, [place], [address] . tel:[phone] OFFICE/OUTPAT IENT VISIT, [facility], [address] [place], [place] [address]C[place], [id number] , [place] tel: [phone] [facility] Fibromyalgia (chief complaint) Chronic pain syndromeFibromy algiaMyalgia, other sitePain in left shoulder 0 Nyongesa Ary. [address] [facility] [address], [place], [id number] , [place]. tel: [phone] Referring Provider: Rick Auguste, [place], [address] . tel:[phone] OFFICE VISIT, [facility], [address] [place] [place], [id number] , [place] tel:[phone] [facility] [place] Fibromyalgia (chief complaint) Chronic pain syndromeFibromy algiaMyalgia, other sitePain in left shoulder Jul-0 5- 0 Will Rick. [address] [place], [id number] , [place]. tel: [phone] Referring Provider: Rick Auguste, [place], [address] . tel:[phone] [facility], [address] [place], [place] [address]C[place], [id number] , [place] tel: [phone] [facility] [place] No Information Jul-0 5 0 Nyongesa Ary. [address] [facility] [address], [place], [id number] , [place]. tel: [phone] Referring Provider: Rick Auguste, [place], [address] . tel:[phone] OFFICE/OUTPAT IENT VISIT, [facility], [address] [place]és [place], [id number] , [place] tel: [phone] [facility] Fibromyalgia (chief complaint) Chronic pain syndromeFibromy algiaMyalgia, other sitePain in left shoulder Oct-0 8-202 0 Nyongesa Ary. [address] [facility] [address], [place], [id number] , [place]. tel: [phone] Referring Provider: Rick Auguste, [address] [facility] [place], [address] . tel:[phone] OFFICE/OUTPAT IENT VISIT, [facility], [address] [place] [address] Andrés [place], [id number] , [place] tel: [phone] [facility] [place] Fibromyalgia (chief complaint) Chronic pain syndromeFibromy algiaMyalgia, other sitePain in left shoulderLong term (current) use of opiate analgesic Sep-0 2-202 0 Nyongesa Ary. [address] [facility] [address], [place], [id number] , [place]. tel:[phone] Referring Provider: Rick Auguste, [address] [place], [address] . tel:[phone] OFFICE/OUTPAT IENT VISIT, [facility], [address] [facility] [place], [id number] , [place] tel:[phone] [facility] Fibromyalgia (chief complaint) Chronic pain syndromeFibromy algiaMyalgia, other sitePain in left shoulder 0 Virginia Martínez. [address] [facility] [address], [place], [id number] , [place]. tel:[phone] Referring Provider: Rick Auguste, [address] [place], [address] . tel:[phone] OFFICE/OUTPAT IENT VISIT, [facility], [address] [place] [address] Andrés [place], [place], [id number] , [place] tel:[phone] [facility] Fibromyalgia (chief complaint) Chronic pain syndromeFibromy algiaEncounter for therapeutic drug level monitoringMyalg ia, other site 0 Francois Mcallister. [address] [facility] [address], [place], [id number] , [place]. tel:[phone] Referring Provider: Rick Auguste, [address] [place], [address] . tel:[phone] Family History Family Member Type Diagnosis Age At Onset No Information Payers Payer name Insurance type Covered green party ID Authorleonaa eryndarien(s) [employer] Medicare PPO Replacement 16 [id number] Social History Type Description Quantity Date Captured Comments Sex Female Smoking Status No Information Chief Complaint And Reason For Visit No Information Reason For Referral Reason For Referral No Information Plan Of Treatment Date Type Action Status Goal OARS. Due on due Goal COMMUNITY ADMINISTRATOR Paperwork. Due on due Goal AST (SGOT). Due on due Goal Creatinine. Due on due Goal ALT (SGPT). Due on due Goal VEHICLE INSPECTOR Scanned. Due on due Goal UDT. Due [...] due Goal Creatinine. Due on due Goal VEHICLE INSPECTOR Scanned. Due on due Goal AST (SGOT). Due on due Goal OARS. Due on due Goal UDT. Due on due Goal COMMUNITY ADMINISTRATOR Paperwork. Due on due Goal Weight. Due [...] due Goal OARS. Due on due Goal COMMUNITY ADMINISTRATOR Paperwork. Due on due Goal VEHICLE INSPECTOR Scanned. Due on due Goal AST (SGOT). [...] due Goal OARS. Due on due Goal COMMUNITY ADMINISTRATOR Paperwork. Due on due Goal VEHICLE INSPECTOR Scanned. Due on due Goal AST (SGOT). [...] due Goal OARS. Due on due Goal COMMUNITY ADMINISTRATOR Paperwork. Due on due Goal VEHICLE INSPECTOR Scanned. Due on due Goal AST (SGOT). [...] care with [facility] and continue care with [facility]. Notes she does not have any hard feelings against [facility] as the main reason why she wants to switch care is d/t being pt at [facility] Reports current medication regimen provides [...] is a 71 y/o female, here via [employer] for virtual follow up and medications refill [...] incontinence (urinary). Fibromyalgia Severity level i s 3. Duration: [...] Beena is meeting with us today via [employer] Virtual Visit for following up and medication [...] multitask, she is becoming more involved with [employer].Reports current medication regimen provides 50+% pain relief [...] been completing PT at [facility] with benefit and is considering pool PT/exercises.Reports [...] tolerable with medication. She started PT at [facility] on her left shoulder after [...] neurology evaluation results by Dr. Ronda la [facility] from November. Reports no significant relief form last TPI. She is not sure that she will be going back to work and is considering longterm.Reports current medication regimen provides 80% pain relief [...] Patient and her were not comfortable signing COMMUNITY ADMINISTRATOR today. Fibromyalgia Severity level i s 6. [...] helpful.naproxen - helpful.L5 nerve block 2019 at [facility] - not helpful.PT - not helpful.TENS - not helpful.Pt goal: [facility] to take over pain management. Functional Status Date Functional Assessmen t No Information Instructions Date Instruction Additional Infor mation No Information Assessments Type Assessment Date No Information Patient Care Teams Name Effective Dates (start - stop) Status Members No Information
--- OUTSIDE RECORDS SUMMARY | 2023-11-15 14:00 | XMS_ITS | Clinical Summary ---
Author Name Unknown Organization [facility] Address [address], [place] [address] Care Team Providers Care Sales Marketing Name Role Phone Unavailable Primary Care Provider Unavailabl e Source Comments You are receiving this document as you are listed as the primary care provider,follow-up provider, or the patient has been referred to you for consultation.This is in compliance with the Medicare andMedicaid EHR Incentive Program,which states Providers who transition their patient to another setting of careor provider of care or refers their patient to another provider of care shouldprovide summary care record for each transition of care or referral. [facility] [employer] Allergies Active Allergy Reactions Criticality Noted Date Comments Clavulanic Acid 03/15/2020 Doxycycline 03/15/2020 Latex 03/15/2020 Sulfa Antibiotics Headache 03/15/2020 Sulfamethoxazole Headache 03/15/2020 Tetracaine Headache 03/15/2020 Trimethoprim Headache 03/15/2020 Medications Medication Sig Dispensed Refills Start Date End Date Status aspirin EC 81 MG enteric coated tablet Take 81 mg by mouth daily. Active sodium chloride (MUKUL-128) 5 % eye drop solution 1 Drop two times a day. Active brimonidine (ALPHAGAN) 0.2 % eye drop solution 1 Drop three times a day. Active FLUOROMETHOLONE OP Active estradiol (ESTRACE) 0.5 MG tablet Take 0.5 mg by mouth daily at bedtime. Active simvastatin (ZOCOR) 20 MG tablet Take 20 mg by mouth daily at bedtime. Active Multiple Vitamins-Iron (MULTIVITAMIN/IRON OR) Ac tive LATANOPROST OP Active diclofenac (VOLTAREN) 1 % gel Apply 2 GRAMS TOPICALLY 3 times every day to the affected area(s) for ARTHRITIS 10/01/2020 Active DULoxetine (CYMBALTA) 30 MG capsule take 1 capsule by oral route every day together with 60mg for pain 10/18/2020 Active DULoxetine (CYMBALTA) 60 MG capsule Take 60 mg by mouth daily. 10/18/2020 Active spironolactone (ALDACTONE) 50 MG tabletIndications:Primar y hyperparathyroidism (HRC) Take 1 Tablet by mouth two times a day. 180 Tablet 3 12/22/2020 Active hydrOXYzine HCl (ATARAX) 25 MG tablet Take 1 Tablet by mouth three times a day as needed. For itching 100 Tablet 12/22/2020 Active Active Problems Problem Noted Date Diagnosed Date Fuchs' corneal dystrophy 11/24/2020 Cornea transplant recipient 11/24/2020 History of left hip replacement 11/24/2020 Pure hypercholesterolemia 11/24/2020 Prediabetes 11/24/2020 Primary hyperparathyroidism 11/24/2020 Essential hypertension 11/24/2020 Social History Tobacco Use Types Packs/Day Years Used Date Smoking Tobacco: Never Smokeless Tobacco: Never Alcohol Use Standard Drinks/Week Comments Never 0 (1 standard drink = 0.6 oz pur e alcohol) AUDIT-C Answer Date Recorded Q1: How often do you have a drink containing alc ohol? Never 10/24/2020 Average Number of Drinks Not on file 021 Frequency of Binge Drinking Not on file 10/01 Sex and Gender Information Value Date Recorded Sex Assigned at Not on file Gender Identity Not on file Sexual Orientation Not on file Last Filed Vital Signs Vital Sign Reading Time Taken Comments Blood Pressure 114/62 10/24/2020 2:13 PM CRUSHER LOADER OPERATOR Pulse 70 10/24/2020 2:13 PM CRUSHER LOADER OPERATOR Temperature - - Respiratory Rate - - Oxygen Saturation - - Inhaled Oxygen Concentration - - Weight 68 kg (150 lb) 10/24/2020 2:13 PM CRUSHER LOADER OPERATOR Height 168.3 cm (5' 6.25) 10/24/2020 2:13 PM CS T Body Mass Index 24.03 10/24/2020 2:13 PM CRUSHER LOADER OPERATOR Plan of Treatment Health Maintenance Due Date Last Done Comments Colon Cancer Screening Plan Due 1950 Hep C Screening (Preventive Services) 1950 Prediabetes: HGBA1C 1950 Mammogram 1950 Adult Preventive Visit 1968 Cholesterol 1995 Zoster/Shingles (2 of 3) 08/20/2012 06/25/2012 DTaP/Tdap/Td (2 - Tdap) 03/30/2020 03/30/2010 COVID-19 Vaccine (3 - season) 2023 12/23/2020, 12/02/2020 Influenza (#1) 2023 06/03/2020, 10/2018, 07/02/2018, Additional history exists Dexa 12/07/2025 12/07/2020 (Completed) Pneumococcal 65+ Yrs Completed 06/18/2018, 08/24/20 15 HepA Aged Out No longer eligi ble based on patient's age to complete this topic HepB Aged Out No longer eligi ble based on patient's age to complete this topic Hib Aged Out No longer eligi ble based on patient's age to complete this topic IPV (Polio) Aged Out No longer eligi ble based on patient's age to complete this topic MCV4 Aged Out No longer eligi ble based on patient's age to complete this topic
--- OUTSIDE RECORDS SUMMARY | 2023-11-15 14:00 | XMS_ITS | Continuity of Care Document ---
Author Name Unknown Organization [facility]nie [facility] Address [address] [place] [address] Phone Care Team Providers Care Guest House Manager Name Role Phone RN, RN Unavailable Unavailable [...] Providers Copied on Encounter [facility] Trujillo, [address], [place], [place], [address], [place] tel:[phone] [facility] No Information 3 RN RN. [address], [facility] [place], [id number], [place]. tel:[phone] Est Pt Eval 25 Min BOO Trujillo, [address], [place], [place], [address], [place] tel:[phone] [facility] bilateral neck pain (chief complaint) Radiculopathy, cervical region 3 Medley Judy. [address], [facility] [place], [address], [place]. tel:[phone] Referring Provider: Lee Norwood, [address], [place], [address] . tel:[phone] Est Pt Eval 25 Min [facility], [address], [place], [place], [address], [place] tel:[phone] [facility] back pain (chief complaint) Hand Pain (chief complaint) Radiculopathy, cervical regionLow back pain, unspecifiedPain in left handPain in unspecified shoulderBody mass index (BMI) 22.0-22.9, adult Mar-0 3 Ketola Hertford. [address], [place], [address], [place]. tel:[phone] Referring Provider: Lee Norwood, [address], [place], [address] . tel:[phone] [facility], [address], [place], [address], [place] tel:[phone] [facility] Radiculopathy, cervical regionRadiculopathy , cervical region 3 [facility]. [address], [place], [place], [address], [place]. tel:[phone] Referring Provider: Parker Quinonez, [address], [place], [address]. tel:[phone] [facility], [address], [place], [place], [address], [place] tel:[phone] [facility] No Information 3 Dexter Canales. [address], [place], [address], [place]. tel:[phone] Referring Provider: Parker Quinonez, [address], [place], [address]. tel:[phone] [facility], [address], [place], [place], [address], [place] tel:[phone] [facility] No Information 3 Dexter Canales. [address], [place], [address], [place]. tel:[phone] Referring Provider: Parker Quinonez, [address], [place], [address]. tel:[phone] Est Pt Eval 25 Min [facility], [address], [place], [place], [address], [place] tel:[phone] [facility] Left hand pain (chief complaint) Radiculopathy, cervical regionPain in unspecified shoulderLow back pain, unspecifiedPain in left handBody mass index (BMI) 24.0-24.9, adult 2 Ketola Ursula. [address], [address], [place], [address], [place]. tel:[phone] Referring Provider: Lee Norwood, [address], [place], [address] . tel:[phone] [facility], [address], [place], [place], [id number], [place] tel:[phone] [facility] No Information 2 Stone Morrow. [address], [place], [address], [place]. tel:[phone] Referring Provider: Cristhian Ritter, [address], [place], [address]. tel:[phone] [facility], [address], [place], [address], [place] tel:[phone] [facility] bilateral neck pain (chief complaint) Radiculopathy, cervical regionRadiculopathy , cervical region Dec- 2 [facility]. [address], [place], [place], [address], [place]. tel:[phone] Referring Provider: Kendall Rodriguez, [address], [place], [address] . tel:[phone] Est Pt Eval 25 Min Ronnie, [facility], [address], [place], [place], [address], [place] tel:[phone] [facility] bilateral shoulder pain (chief complaint) Low back pain, unspecifiedRadiculo enzo, cervical regionPain in unspecified shoulderFibromyalgi aPain in left hand 2 Ketola Ursula. [address], [place], [id number], [place]. tel:[phone] Referring Provider: Lee Norwood, [address], [place], [address] . tel:[phone] New Pt Eval 45 Min Ronnie, [facility], [address], [place], [place], [address], [place] tel:[phone] [facility] All Over Body Pain (chief complaint) FibromyalgiaRadicul opathy, cervical regionPain in unspecified shoulderLow back pain, unspecifiedRadiculo enzo, lumbar regionBody mass index (BMI) 25.0-25.9, adult Sep-2 2 Enma Howard. [address], [place], [id number], [place]. tel:[phone] Referring Provider: Lee Norwood, [address], [place], [address] . tel:[phone] Family History Family Member Type Diagnosis Age At Onset No Information Payers Payer name Insurance type Covered republican ID Sparkle caicedo(s) [employer] Medicare PPO 16 [id number] Social History Type Description Quantity Date Captured [...] telehealth ok Related to Radiculopathy, cervical region - Consider repeat Ce rvical Epidural Steroid [...] changes Related to Pain in left hand Same plan of care as statement for [...] sedation, please make sure to have a driver wheelchair with you on the day of your [...] changes Related to Pain in left hand Lifestyle education regarding di et Related to [...] sedation, please make sure to have a driver wheelchair with you on the day of your [...] no changes Related to Radiculopathy, lumbar region -Order cervical MRI at [facility]-Schedule physical therapy-Exercise daily-Prescribe Hydroxyzine 25mg 1x/day as needed-Will consider injections after reviewing imaging-Follow up with advanced practice provider in 4 weeks Related to Radiculopathy, cervical region -Order lumbar MRI at [facility]-Order stationary neutral A/P and lateral views x rays at [facility] -Order lateral flexion vs extension x ray of the lumbar spine at [facility] Related to Low back pain, unspecified Lifestyle education regarding di et Related to Body mass index [BMI] 25.0-25.9, adult Assessments Type Assessment Date No Information Patient Care Teams Name Effective Dates (start - stop) Status Members No Information
--- OUTSIDE RECORDS SUMMARY | 2023-11-15 14:00 | XMS_ITS | Clinical Summary ---
Author Name Unknown Organization [facility] Address [place], [place] [address] Care Team Providers Care Mobile Device Developer Name Role Phone Alisha Lacey DO Primary Care Provid er Allergies Active Allergy Reactions Criticality Noted Date Comments Doxycycline Rash 05/21/2013 Sulfa (Sulfonamide Antibiotics) Rash 05/01 Medications Medication Sig Dispensed Refills Start Date End Date Status citalopram (CELEXA) 20 mg tablet Take 1 tablet by mouth once daily. 0 05/21/2013 Active estradiol (ESTRACE) 1 mg tablet Take 1 tablet by mouth once daily. 0 05/21/2013 Active nortriptyline (PAMELOR) 25 mg capsule Take 1 capsule by mouth at bedtime. 0 05/21/2013 Active simvastatin (ZOCOR) 20 mg tablet Take 1 tablet by mouth at bedtime. 0 05/21/2013 Active Active Problems Problem Noted Date Diagnosed Date Trochanteric bursitis 06/03/2013 Leg swelling 05/21/2013 Hip pain 05/21/2013 Leg pain 05/21/2013 Social History Tobacco Use Types Packs/Day Years Used Date Smoking Tobacco: Never Alcohol Use Standard Drinks/Week Comments Not Asked 0 (1 standard drink = 0.6 oz pur e alcohol) Sex and Gender Information Value Date Recorded Sex Assigned at Not on file Gender Identity Not on file Sexual Orientation Not on file Obstetrics History Last Filed Vital Signs Vital Sign Reading Time Taken Comments Blood Pressure 113/79 05/21/2013 2:45 PM CDT Pulse 81 05/21/2013 2:45 PM CDT Temperature 36.5 ??C (97.7 ??F) 05/21/2013 2:45 PM CD T Respiratory Rate - - Oxygen Saturation 97% 05/21/2013 2:45 PM CDT Inhaled Oxygen Concentration - - Weight 75.3 kg (166 lb) 05/21/2013 2:45 PM CDT Height - - Body Mass Index - - Plan of Treatment Health Maintenance Due Date Last Done Comments COVID-19 vaccine series (#1) 02/06/1951 Tdap 1961 Depression screening for age 12+ 1962 BMI (ht and wt on same day) for age 18+ 1968 Hepatitis C screening for age 18-79 1968 Tetanus booster 1970 Colonoscopy through age 75 1995 Lipids for age 45-75 1995 Mammogram for age 45-75 1995 Zoster (shingles) series for age 50+ (1 of 2) 08/09/20 00 DEXA/DXA scan for age 65+ 2015 Pneumococcal series for age 65+ (1 of 1 - PCV) 015 Influenza for age 65+ 05/31/2023 Care Teams Mobile Device Developer Relationship Specialty Start Date End Date Alisha Lacey DO PCP - General Family Practice 05/21/13
--- OUTSIDE RECORDS SUMMARY | 2023-11-15 14:00 | XMS_ITS | Clinical Summary ---
Author Name Unknown Organization [facility] Address [address] [place] [address] Care Team Providers Care Aircraft Manager Name Role Phone Unavailable Primary Care Provider Unavailabl e Social History Tobacco Use Types Packs/Day Years Used Date Smoking Tobacco: Never Assessed Sex and Gender Information Value Date Recorded Sex Assigned at Not on file Gender Identity Not on file Sexual Orientation Not on file Plan of Treatment Not on file
--- OUTSIDE RECORDS SUMMARY | 2023-11-15 14:00 | XMS_ITS | Referral Summary ---
Author Name Unknown Organization [facility] Address [address] [place] [address] Care Team Providers Care Drafter Civil (Cad) Name Role Phone Unavailable Primary Care Provider Unavailabl e Social History Tobacco Use Types Packs/Day Years Used Date Smoking Tobacco: Never Assessed Sex and Gender Information Value Date Recorded Sex Assigned at Not on file Gender Identity Not on file Sexual Orientation Not on file Plan of Treatment Not on file
== END 2023-11-15 13:57 | disposition home or self-care (01) ==
PROVIDERS: PCP Family Medicine; Visit Provider Family Medicine
DX: R63.4 Abnormal weight loss (principal)
CPT/HCPCS: 80053; 84443

== ENCOUNTER 2024-03-20 10:01 | Outpatient (CLI) | payer MEDICARE, SELFPAY ==
--- OUTSIDE RECORDS SUMMARY | 2024-03-20 10:04 | XMS_ITS | Clinical Summary ---
Author Organization [facility] Address [place], [place] [address] Care Team Providers Care Cardiology Teacher Name Role Phone Alisha Lacey DO Primary [...] Health Maintenance Due Date Last Done Comments Tdap 1961 Depression screening for age 12+ [...] 65+ (1 of 1 - PCV) 015 COVID-19 vaccine series ( - 2022- season) 3 Influenza for age 65+ 05/31/2024 Care Teams Cardiology Teacher Relationship Specialty Start Date End Date Alisha Lacey DO PCP - General Family Practice 05/21/13
--- OUTSIDE RECORDS SUMMARY | 2024-03-20 10:04 | XMS_ITS | Continuity of Care Document ---
Author Organization [facility] Address [address] [place] [address] Phone Care Team Providers Care Log Buncher Name Role Phone RN, RN Unavailable Unavailable Allergies, Adverse Reactions, Alerts Substance Reaction Status Criticality No Known Allergies Active No Inform ation Medications Medication Instructions Dosage Effective Dates (start - stop) Status Comments aspirin 81 mg tablet,delayed release take 1 [...] chloride 5 % eye ointment - Active spironolactone 50 mg tablet take 1 tablet by oral route every day 50 MG - Active dorzolamide 22.3 mg-timolol 6.8 mg/mL eye drops instill 1 drop by ophthalmic route 2 times every day into affected eye(s) 1.00 drop - Active simvastatin 20 mg tablet take 1 tablet by oral route every day in the evening 20 MG - Active latanoprost 0.005 % eye drops instill 1 drop by ophthalmic route every day into affected eye(s) in the evening 1.00 drop - Active estradiol 0.5 mg tablet take 1 tablet by oral route every day days 1-21 0.5 MG - Active brimonidine tartrate (bulk) 100 % powder - Active fluorometholone 0.1 % eye drops,suspension instill 1 drop by ophthalmic route 2 times every day into affected eye(s) 1 drop - Active duloxetine 60 mg capsule,delayed release take 1 capsule by oral route every day 60 MG - Active hydroxyzine HCl 25 mg tablet take 1 tablet by oral route 4 times every day as needed 25 MG - Active Procedures Procedure Date Est Pt [...] Providers Copied on Encounter BOO Trujillo, [address], [place], [place], [id number], [place] tel:[phone] [facility] No Information 3 RN RN. [address], [address], [place], [id number], [place]. tel:[phone] Est Pt Eval 25 Min JOÃO Trujillo, [address], [place], [place], [address], [place] tel:[phone] [facility] bilateral neck pain (chief complaint) Radiculopathy, cervical region 3 Medley Judy. [address], [place], [address], [place]. tel:[phone] Referring Provider: Lee Norwood, [address], [place], [address] . tel:[phone] Est Pt Eval 25 Min Telehealth Ron[facility], [facility], [address], [place], [place], [address], [place] tel:[phone] [facility] back pain (chief complaint) Hand Pain (chief complaint) Radiculopathy, cervical regionLow back pain, unspecifiedPain in left handPain in unspecified shoulderBody mass index (BMI) 22.0-22.9, adult Mar-0 3 Ketola Cowley. [address], [address], [place], [place], [address], [place]. tel:[phone] Referring Provider: Lee Norwood, [address], [place], [address] . tel:[phone] [facility], [address], [place], [address], [place] tel:[phone] [facility] Radiculopathy, cervical regionRadiculopathy , cervical region 3 [facility]. [address], [place], [place], [address], [place]. tel:[phone] Referring Provider: Parker Farmer, [address], [place], [address]. tel:[phone] [facility], [address], [place], [place], [address], [place] tel:[phone] [facility] No Information 3 Dexter Canales. [address], [place], [address], [place]. tel:[phone] Referring Provider: Parker Farmer, [address], [place], [address]. tel:[phone] [facility], [facility], [address], [place], [place], [address], [place] tel:[phone] [facility] No Information 3 Dexter Canales. [address], [place], [address], [place]. tel:[phone] Referring Provider: Parker Farmer, [address], [place], [address]. tel:[phone] Est Pt Eval [address] [facility], [address], [place], [place], [address], [place] tel:[phone] [facility] Left hand pain (chief complaint) Radiculopathy, cervical regionPain in unspecified shoulderLow back pain, unspecifiedPain in left handBody mass index (BMI) 24.0-24.9, adult 2 Ketola Cowley. [address], [place], [address], [place]. tel:[phone] Referring Provider: Lee Norwood, [address], [place], [address] . tel:[phone] [facility], [address], [place], [place], [address], [place] tel:[phone] [facility] No Information 2 Stone Morrow. [address], [place], [address], [place]. tel:[phone] Referring Provider: Cristhian Ritter, [address], [place], [address]. tel:[phone] [facility], [address], [place], [address], [place] tel:[phone] [facility] bilateral neck pain (chief complaint) Radiculopathy, cervical regionRadiculopathy , cervical region Dec- 2 [facility]. [address], [place], [address], [place]. tel:[phone] Referring Provider: Kendall Rodriguez, [address], [place], [address] . tel:[phone] Est Pt Eval 25 Min [facility], [facility], [address], [place], [place], [address], [place] tel:[phone] [facility] bilateral shoulder pain (chief complaint) Low back pain, unspecifiedRadiculo enzo, cervical regionPain in unspecified shoulderFibromyalgi aPain in left hand 2 Ketola Cowley. [address], [place], [id number], [place]. tel:[phone] Referring Provider: Lee Norwood, [address], [place], [address] . tel:[phone] New Pt Eval 45 Min Ron[facility], [facility], [address], [place], [place], [address], [place] tel:[phone] [facility] All Over Body Pain (chief complaint) FibromyalgiaRadicul opathy, cervical regionPain in unspecified shoulderLow back pain, unspecifiedRadiculo enzo, lumbar regionBody mass index (BMI) 25.0-25.9, adult Sep-2 2 Enma Howard. [address], [place], [id number], [place]. tel:[phone] Referring Provider: Lee Norwood, [address], [place], [address] . tel:[phone] Family History Family Member Type Diagnosis Age At Onset No Information Payers Payer name Insurance type Covered constitution party ID Sparkle caicedo(s) Rodney Medicare PPO 16 [id number] Social History Type Description Quantity Date Captured [...] No Information Instructions Date Instruction Additional Infor filiberto -Refill and continue Hydroxyzine 25mg 1x a [...] Related to Low back pain, unspecified - Consider repeat Ce rvical Epidural Steroid [...] Related to Pain in unspecified shoulder - Consider Lumbar Ep idural Steroid Injections in future Related to Low back pain, unspecified - Schedule Cervical Epidural Steroid Injection at the C-7/T1 once ready, ordered todayIf you would like conscious sedation, please make sure to have a equipment driver with you on the day of your procedure; inform them to use half the dose- Consider Cervical Medial Branch Block in the future- Consider Cervical Radiofrequency Ablation- Schedule physical therapy- Will take over your Duloxetine 60mg , will refill today.- Exercise daily- Continue Hydroxyzine 25mg 1x/day as needed- Follow-up as needed, telehealth [place] Related to Radiculopathy, cervical region Lifestyle education [...] sedation, please make sure to have a equipment driver with you on the day of [...]
--- OUTSIDE RECORDS SUMMARY | 2024-03-20 10:05 | XMS_ITS | Clinical Summary ---
Author Organization [facility] Address [address] [place] [address] Care Team Providers Care Cut Plug Packer Name Role Phone Unavailable Primary Care Provider [...] for each transition of care or referral. [facility] Allergies Active Allergy Reactions Criticality Noted Date [...] Comments Blood Pressure 114/62 10/24/2020 2:13 PM QUOTE CLERK Pulse 70 10/24/2020 2:13 PM QUOTE CLERK Temperature - - Respiratory Rate - - Oxygen Saturation - - Inhaled Oxygen Concentration - - Weight 68 kg (150 lb) 10/24/2020 2:13 PM QUOTE CLERK Height 168.3 cm (5' 6.25) 10/24/2020 2:13 PM CS T Body Mass Index 24.03 10/24/2020 2:13 PM QUOTE CLERK Plan of Treatment Health Maintenance Due Date Last Done Comments Colon Cancer Screening Plan Due 1950 Hep C Screening (Preventive Services) 1950 Prediabetes: HGBA1C 1950 Mammogram 1950 Adult Preventive Visit 1968 Cholesterol 1995 Zoster/Shingles (2 of 3) 08/20/2012 06/25/2012 DTaP/Tdap/Td (2 - Tdap) 03/30/2020 03/30/2010 COVID-19 Vaccine (3 - season) 2023 12/23/2020, 12/02/2020 Influenza (Season Ended) 2024 020, 07/01/2019, 07/02/2018, Additional history exists Dexa 12/07/2025 12/07/2020 [...]
--- OUTSIDE RECORDS SUMMARY | 2024-03-20 10:05 | XMS_ITS | Referral Summary ---
Author Organization [facility] Address [address] [place] [address] Care Team Providers Care Bronze Plater Name Role Phone Unavailable Primary Care Provider Unavailabl e Social History Tobacco Use Types Packs/Day Years Used Date Smoking Tobacco: Never Assessed Sex and Gender Information Value Date Recorded Sex Assigned at Not on file Gender Identity Not on file Sexual Orientation Not on file Plan of Treatment Not on file
--- OUTSIDE RECORDS SUMMARY | 2024-03-20 10:05 | XMS_ITS | Clinical Summary ---
Author Organization [facility] Address [address] [place] [address] Care Team Providers Care User Experience Analyst Name Role Phone Unavailable Primary Care Provider Unavailabl e Social History Tobacco Use Types Packs/Day Years Used Date Smoking Tobacco: Never Assessed Sex and Gender Information Value Date Recorded Sex Assigned at Not on file Gender Identity Not on file Sexual Orientation Not on file Plan of Treatment Not on file
--- NOTE | 2024-03-20 10:15 | CRLHL7_ITS ---
For Patients: As a result of the Century Cures Act, medical imaging exams and procedure reports are released immediately into your electronic medical record. You may view this report before your referring provider. If you have questions, please contact your health care provider. BILATERAL SCREENING MAMMOGRAM WITH COMPUTER-AIDED DETECTION AND TOMOSYNTHESIS TECHNIQUE: CC and MLO views were obtained. These mammographic images have been obtained using full-field digital technique. These mammographic images were interpreted with the benefit of computer-aided detection. Breast Tomosynthesis was used in this interpretation. COMPARISON FILM: 10/11/2022, 06/14/2021, 05/04/2020. FINDINGS: The breasts are heterogeneously dense, which may obscure small masses. IMPRESSION: There is no radiographic evidence for malignancy. ASSESSMENT: BI-RADS Category 1: Negative RECOMMENDATION: Routine screening mammogram in 1 year. A lay language report of this examination will be provided to the patient. Kendall Macias M.D. Diagnostic Radiologist [email or web address] SP/Dictated by: Kendall Macias MD @ 03/20/2024 10:33:00 AM (Electronically Signed)
== END 2024-03-20 10:02 | disposition home or self-care (01) ==
LOC: MAMMO 10:03
PROVIDERS: PCP Family Medicine; Visit Provider Family Medicine
DX: Z12.31 Encounter for screening mammogram for malignant neoplasm of breast (principal); R92.2 Inconclusive mammogram
CPT/HCPCS: 77063; 77067

== ENCOUNTER 2024-06-08 09:39 | Outpatient (CLI) | payer MEDICARE, SELFPAY ==
--- OUTSIDE RECORDS SUMMARY | 2024-06-08 09:43 | XMS_ITS | Clinical Summary ---
Author Organization [facility] Address [address] [place] [address] Care Team Providers Care Community Health Planning Director Name Role Phone Unavailable Primary Care Provider Unavailabl e Social History Tobacco Use Types Packs/Day Years Used Date Smoking Tobacco: Never Assessed Sex and Gender Information Value Date Recorded Sex Assigned at Not on file Gender Identity Not on file Sexual Orientation Not on file Plan of Treatment Not on file
--- OUTSIDE RECORDS SUMMARY | 2024-06-08 09:43 | XMS_ITS | Clinical Summary ---
Author Organization [facility] Address [place], [place] [address] Care Team Providers Care Mail Distributor Name Role Phone Alisha Lacey DO Primary [...] COVID-19 vaccine series ( - 2022- season) 4 Influenza for age 65+ 05/31/2024 Care Teams Mail Distributor Relationship Specialty Start Date End Date Alisha Lacey DO PCP - General Family Practice 05/21/13
--- OUTSIDE RECORDS SUMMARY | 2024-06-08 09:43 | XMS_ITS | Referral Summary ---
Author Organization [facility] Address [address] [place] [address] Care Team Providers Care Phlebotomy Tech Name Role Phone Unavailable Primary Care Provider Unavailabl e Social History Tobacco Use Types Packs/Day Years Used Date Smoking Tobacco: Never Assessed Sex and Gender Information Value Date Recorded Sex Assigned at Not on file Gender Identity Not on file Sexual Orientation Not on file Plan of Treatment Not on file
--- OUTSIDE RECORDS SUMMARY | 2024-06-08 09:43 | XMS_ITS | Clinical Summary ---
Author Organization [facility] Address [address] [place] [address] Care Team Providers Care Paint Preparer Name Role Phone Unavailable Primary Care Provider [...] for each transition of care or referral. [facility] Allergies Active Allergy Reactions Criticality Noted Date [...] Comments Blood Pressure 114/62 10/24/2020 2:13 PM GAUGER CHIEF DELIVERY Pulse 70 10/24/2020 2:13 PM GAUGER CHIEF DELIVERY Temperature - - Respiratory Rate - - Oxygen Saturation - - Inhaled Oxygen Concentration - - Weight 68 kg (150 lb) 10/24/2020 2:13 PM GAUGER CHIEF DELIVERY Height 168.3 cm (5' 6.25) 10/24/2020 2:13 PM CS T Body Mass Index 24.03 10/24/2020 2:13 PM GAUGER CHIEF DELIVERY Plan of Treatment Health Maintenance Due Date Last Done Comments Colon Cancer Screening Plan Due 1950 Hep C Screening (Preventive Services) 1950 Prediabetes: HGBA1C 1950 Mammogram 1950 Adult Preventive Visit 1968 Cholesterol 1995 Zoster/Shingles (2 of 3) 08/20/2012 06/25/2012 DTaP/Tdap/Td (2 - Tdap) 03/30/2020 03/30/2010 COVID-19 Vaccine (3 - season) 2024 12/23/2020, 12/02/2020 Influenza (#1) 2024 06/03/2020, 10/2018, 07/02/2018, Additional history exists Dexa [...]
== END 2024-06-08 09:40 | disposition home or self-care (01) ==
LOC: LKVREF 09:40
PROVIDERS: PCP Family Medicine; Visit Provider Family Medicine
DX: Z00.00 Encounter for general adult medical examination without abnormal findings (principal); E78.5 Hyperlipidemia, unspecified; E78.2 Mixed hyperlipidemia
CPT/HCPCS: 80061

== ENCOUNTER 2024-11-23 13:47 | Outpatient (CLI) | payer MEDICARE, SELFPAY | END 2024-11-23 13:48 | disposition home or self-care (01) | PROVIDERS: PCP Family Medicine; Visit Provider Family Medicine | DX: E78.2 Mixed hyperlipidemia (principal); N30.00 Acute cystitis without hematuria; Z13.1 Encounter for screening for diabetes mellitus; R73.03 Prediabetes; F41.9 Anxiety disorder, unspecified; N39.0 Urinary tract infection, site not specified | CPT/HCPCS: 80048; 80061; 87086 ==

== ENCOUNTER 2024-12-22 15:00 | Outpatient (RCR) | payer MEDICARE, SELFPAY | END 2025-01-26 16:18 | disposition home or self-care (01) | PROVIDERS: PCP Family Medicine; Visit Provider Orthopaedic Surgery Sports Medicine | DX: M75.112 Incomplete rotator cuff tear or rupture of left shoulder, not specified as traumatic (principal); M19.012 Primary osteoarthritis, left shoulder; M50.30 Other cervical disc degeneration, unspecified cervical region; Z51.89 Encounter for other specified aftercare | CPT/HCPCS: 97110; 97112; 97161 ==

== ENCOUNTER 2024-12-30 15:12 | Outpatient (CLI) | payer MEDICARE, SELFPAY ==
--- NOTE | 2024-12-30 15:30 | MR_ITS ---
EXAM: MRI of the LEFT SHOULDER, without contrast CLINICAL: Left shoulder pain. Evaluate for rotator cuff tear. COMPARISONS: X-rays dated 09/08/2024. TECHNICAL: Multiplanar multisequence MRI of the left shoulder was obtained. SEDATION: None. CONTRAST: None. FINDINGS: Rotator cuff: Supraspinatus/Infraspinatus: There is high-grade partial tearing involving the insertional fibers of the distal supraspinatus tendon extending into the distal infraspinatus tendon on coronal series 5 images 12-15. Moderate tendinosis of the remaining anterior distal supraspinatus tendon and posterior distal infraspinatus tendon with minimal focal partial interstitial tearing of the more proximal infraspinatus tendon on sagittal series 9 image 10. No significant fatty atrophy of the muscles. Teres minor: No tendinosis, tear or atrophy. Subscapularis: There is focal moderate partial interstitial insertional tearing of the distal tendon on axial series 4 image 15. No fatty atrophy of the muscle. Bursae: Subacromial-subdeltoid: Mild bursal fluid. Subcoracoid: Minimal bursal fluid. Coracoacromial arch: Acromion morphology: Type II. No os acromiale. Acromiohumeral space: Moderately narrowed. Coracohumeral space: Within normal limits. Biceps tendon, long head: Intraarticular and extraarticular segments intact without rupture, tendinopathy or displacement. Glenohumeral joint: No joint effusion. Articular cartilage: Small segment of full-thickness chondral loss involves the superior humeral head on coronal series 5 image 13-15. Remainder of the glenohumeral cartilage appears preserved. Capsule: No evidence of capsular thickening or injury. Labrum: There is attenuation/degeneration of the majority of the glenoid labrum. No perilabral cyst identified. Bones: There is sequelae of prior displaced fracture involving the distal right clavicle. No evidence of acute fracture or dislocation. Acromioclavicular joint: Mild changes of arthrosis. No AC joint widening. There is partially visualized increased edema/strain involving the deltoid muscle. IMPRESSION: 1. High-grade partial tearing involving the insertional fibers of the distal supraspinatus tendon extending into the distal infraspinatus tendon. Focal moderate partial interstitial insertional tearing also involves the distal subscapularis tendon. 2. Moderately narrowed acromiohumeral space with mild fluid within the subacromial/subdeltoid bursa. 3. Sequelae of prior displaced fracture involving the distal clavicle. Mild changes of arthrosis at the AC joint. 4. Small segment of full-thickness chondral loss involving the superior humeral head. Attenuation/degeneration of the majority of the glenoid labrum. 5. Partially visualized increased edema/strain involving the deltoid muscle. TANIZ Electronically signed on 12/31/2024 9:03:00 AM by Chuck Mazariegos D.O.
== END 2024-12-30 15:13 | disposition home or self-care (01) ==
LOC: MRI 15:13
PROVIDERS: PCP Family Medicine; Visit Provider Orthopaedic Surgery Sports Medicine
DX: M25.512 Pain in left shoulder (principal); M75.102 Unspecified rotator cuff tear or rupture of left shoulder, not specified as traumatic; M19.012 Primary osteoarthritis, left shoulder; S46.812A Strain of other muscles, fascia and tendons at shoulder and upper arm level, left arm, initial encounter
CPT/HCPCS: 73221